=== PATIENT | female | born 2000 | race American Indian/Alaskan Native ===

== ENCOUNTER 2022-05-24 13:51 | Inpatient (IN) | payer OTHER, MEDICAID ==
--- NOTE | 2022-05-24 14:19 | Emergency Department Report ---
Blank Doc - Documentation Documentation: 22-year-old female presents with pelvic pain and vaginal bleeding. Patient st ated she is about 5 to 6 weeks. 1- This is a initial triage assessment/medical screening only. Full assessment and work-up will be completed once the patient is in [facility] gown, ED b ed and in a private room setting. This initial assessment/diagnostic orders/clinical plan/ treatment(s) is/are subject to change based on pt's health status, clinical progression and re-assessment by fellow clinical providers in the ED. Further treatment and workup at subsequent clinical providers discretion. Patient/guardians urged not to elope from ED as their condition may be serious if not clinically assessed and managed. 2-labs 3-UA 4-US OB The patient was evaluated in the emergency department for symptoms described in the history of present illness. He/she was evaluated in the context of the global COVID-19 pandemic, which necessitated consideration that the patient might be at risk for infection with the virus that causes COVID-19. Institutional protocols and algorithms that pertain to the evaluation of patients at risk for COVID-19 are in a state of rapid change based on information released by regulatory bodies including the CDC and federal and state organizations. These policies and algorithms were followed during the patient's care in the emergency department. Please note that these policies, procedures and recommendations changed on a rapid basis.
--- NOTE | 2022-05-24 16:41 | Ultrasound Report ---
US OB <= 14 weeks fetus INDICATION / CLINICAL INFORMATION: vaginal bleeding with pelvic pain. TECHNIQUE: Transabdominal. COMPARISON: None available. FINDINGS: UTERUS: Appears within normal limits. GESTATIONAL SAC: Well-defined oval shape and intrauterine in location. YOLK SAC: No significant abnormality. EMBRYO/FETUS: - [place] Length = 2.7 cm - Heart Rate, beats per minute (if present) = 133 beats per minute ADNEXA: No significant abnormality. FREE FLUID: None. ADDITIONAL FINDINGS: None. IMPRESSION: 1. Single, living intrauterine with estimated sonographic age of 9 weeks 4 days. Signer Name: Francesco Longoria MD Signed: 05/24/2022 4:36 PM Workstation Name: [facility]
[2022-05-24] MEDS ORDERED: SODIUM CHLORIDE 0.9% 1000 ML 1,000 ML IV ONE ×3 (18:25→21:25)
[2022-05-24 19:15] LABS: Albumin 4.1 g/dL (3.9-5); Calcium 9.3 mg/dL (8.4-10.2)
[2022-05-24] MEDS ORDERED: INSULIN REGULAR, HUMAN 100 UNITS/1 ML IV ONE ×2 (19:42→23:15)
[2022-05-24 20:10] LABS: Hematocrit 47.1 % (30.3-42.9); Hemoglobin 14.1 gm/dl (10.1-14.3); Mean Corpuscular HGB Conc 30 % (30-34); Mean Corpuscular Volume 100 fl (79-97); Platelet Count 490 K/mm3 (140-440); Red Blood Count 4.71 M/mm3 (3.65-5.03); Red Cell Distribution Width 14.6 % (13.2-15.2)
[2022-05-24] MEDS ORDERED: DEXTROSE 50% IN WATER (25GM) 50 ML SYRINGE IV PRN (21:25)
[2022-05-24] MEDS ORDERED: ONDANSETRON 4 MG/2 ML INJ IV ONE (21:25)
--- NOTE | 2022-05-24 21:30 | Emergency Department Report ---
ED General Adult HPI - General Chief complaint: Vaginal Bleeding Stated complaint: POSSIBLE MISCARRIAGE Time Seen by Provider: 05/24/22 14:15 Source: patient, family Mode of arrival: Ambulatory Limitations: No Limitations - History of Present Illness Initial comments: The patient was evaluated in the emergency department for symptoms described in the history of present illness. He/she was evaluated in the context of the global COVID-19 pandemic, which necessitated consideration that the patient might be at risk for infection with the virus that causes COVID-19. Institutional protocols and algorithms that pertain to the evaluation of patients at risk for COVID-19 are in a state of rapid change based on information released by regulatory bodies including the CDC and federal and state organizations. These policies and algorithms were followed during the patient's care in the emergency department. Please note that these policies, procedures and recommendations changed on a rapid basis. During the history and physical examination, I am chaperoned by nurse Ghada This is a 23-year-old female, with a history of type 1 diabetes. She is 3, para 1, and reports that she is approximately 9-1/2 weeks , reports that she does not currently have an outpatient CONTROLLER INSTRUCTOR. She also has a history of hyperemesis gravidarum. She presents to the department today with a complaint of 1 month of nausea and vomiting, malaise, fatigue, feeling thirsty, and 2 days of lower abdominal cramping with vaginal bleeding. -: Gradual, days(s) Location: abdomen Severity scale (0 -10): 6 Quality: aching Consistency: intermittent Improves with: rest Worsens with: movement - Related Data Allergies Allergy/AdvReac Type Severity Reaction Status Date / Time No Known Allergies Allergy Unverified 05/24/22 14:18 ED Review of Systems ROS: Stated complaint: POSSIBLE MISCARRIAGE Other details as noted in HPI Constitutional: malaise, weakness. denies: fever Eyes: denies: eye discharge ENT: denies: epistaxis Respiratory: denies: cough Cardiovascular: denies: chest pain Gastrointestinal: abdominal pain, nausea, vomiting Genitourinary: as per HPI. denies: dysuria Neurological: weakness Psychiatric: anxiety ED Past Medical Hx - Social History Smoking Status: Never Smoker Substance Use Type: None ED Physical Exam - General Limitations: No Limitations General appearance: alert, anxious, in distress - Head Head exam: Present: atraumatic, normocephalic - Eye Eye exam: Present: normal appearance, EOMI. Absent: nystagmus - ENT ENT exam: Present: normal exam, mucous membranes dry, normal external ear exam - Neck Neck exam: Present: normal inspection, full ROM. Absent: tenderness, meningismus - Respiratory Respiratory exam: Present: normal lung sounds bilaterally. Absent: respiratory distress, wheezes, rales, rhonchi, stridor, decreased breath sounds - Cardiovascular Cardiovascular Exam: Present: normal rhythm, tachycardia, normal heart sounds. Absent: bradycardia, irregular rhythm, systolic murmur, diastolic murmur, rubs, gallop - GI/Abdominal GI/Abdominal exam: Present: soft. Absent: distended, tenderness, guarding, rebound, rigid, pulsatile mass - Extremities Exam Extremities exam: Present: normal inspection, full ROM, normal capillary refill, other (2+ pulses noted in the bilateral upper and lower extremities. There is no palpable cord. negative Homans sign. Muscular compartments are soft. The pelvis is stable.). Absent: pedal edema, calf tenderness - Back Exam Back exam: Present: normal inspection. Absent: tenderness, CVA tenderness (R), CVA tenderness (L), paraspinal tenderness, vertebral tenderness - Neurological Exam Neurological exam: Present: alert, oriented X3, normal gait, other (No facial droop. Tongue midline. Extraocular movements intact bilaterally. Facial sensation intact to light touch in V1, V2, V3 distribution bilaterally. 5 and a 5 strength in 4 extremities. Sensation intact to light touch in 4 extremities.). Absent: motor sensory deficit - Psychiatric Psychiatric exam: Present: anxious - Skin Skin exam: Present: warm, dry, intact, normal color. Absent: rash ED Course Vital Signs 05/24/22 05/24/22 05/24/22 14:15 22:31 22:33 Temperature 98.9 F Pulse Rate 123 H 115 H Respiratory 18 34 H Rate Blood Pressure Blood Pressure 130/61 [Right] O2 Sat by Pulse 100 Oximetry O2 Sat by Pulse 99 Oximetry [ Digit-Finger] 05/24/22 05/24/22 22:45 23:01 Temperature Pulse Rate 114 H 124 H Respiratory 36 H 40 H Rate Blood Pressure 120/64 122/71 Blood Pressure [Right] O2 Sat by Pulse 99 99 Oximetry O2 Sat by Pulse Oximetry [ Digit-Finger] - Consultations Consultation #1: 05/24/22 22:30 Case presented to critical care physician, Dr. Coombs, Who agrees with the plan of care, and will follow in consultation Consultation #2: 05/24/22 22:31 Case presented to CONTROLLER INSTRUCTOR, Dr Lord, who agrees with the plan of care, and will follow in consultation - EJ/Peripheral Line Neck R Time Out Performed: Yes Indications: multiple IV sites needed Skin Cleansed in Sterile Fashion: Yes Size: 20 Dressing Placed: Tegaderm Patient Tolerated Procedure: well - Pulse Oximetry Interpretation Digit-Finger Initial Pulse Oximetry Readin O2 Sat by Pulse Oximetry: 99 Actions Taken: none ED Medical Decision Making - Lab Data Result diagrams: 05/24/22 18:40 05/24/22 18:40 Vital Signs 05/24/22 14:15 Temperature 98.9 F Pulse Rate 123 H Respiratory 18 Rate Blood Pressure 130/61 [Right] Lab Results 05/24/22 05/24/22 05/24/22 Range/Units 18:40 18:40 18:40 WBC 23.1 H (4.5-11.0) K/mm3 RBC 4.71 (3.65-5.03) M/mm3 Hgb 14.1 (10.1-14.3) gm/dl Hct 47.1 H (30.3-42.9) % MCV 100 H (79-97) fl MCH 30 (28-32) pg MCHC 30 (30-34) % RDW 14.6 (13.2-15.2) % Plt Count 490 H (140-440) K/mm3 Sodium 117 L* (137-145) mmol/L Potassium 6.6 H* (3.6-5.0) mmol/L Chloride 71.5 L (98-107) mmol/L Carbon Dioxide 6 L* (22-30) mmol/L Anion Gap 46 mmol/L BUN 34 H (7-17) mg/dL Creatinine 1.4 H (0.6-1.2) mg/dL Estimated GFR 57 ml/min BUN/Creatinine Ratio 24 % Glucose 1080 H* (65-100) mg/dL Calcium 9.3 (8.4-10.2) mg/dL Total Bilirubin 0.60 (0.1-1.2) mg/dL AST 20 (5-40) units/L ALT 20 (7-56) units/L Alkaline Phosphatase 111 (35-129) units/L Total Protein 8.3 H (6.3-8.2) g/dL Albumin 4.1 (3.9-5) g/dL Albumin/Globulin Ratio 1.0 % Blood Type A NEGATIVE - Radiology Data Radiology results: pending, report reviewed, image reviewed US OB <= 14 weeks fetus INDICATION / CLINICAL INFORMATION: vaginal bleeding with pelvic pain. TECHNIQUE: Transabdominal. COMPARISON: None available. FINDINGS: UTERUS: Appears within normal limits. GESTATIONAL SAC: Well-defined oval shape and intrauterine in location. YOLK SAC: No significant abnormality. EMBRYO/FETUS: - [place] Length = 2.7 cm - Heart Rate, beats per minute (if present) = 133 beats per minute ADNEXA: No significant abnormality. FREE FLUID: None. ADDITIONAL FINDINGS: None. IMPRESSION: 1. Single, living intrauterine with estimated sonographic age of 9 weeks 4 days. Signer Name: Francesco Longoria MD Signed: 05/24/2022 3:36 PM Workstation Name: [employer] - Medical Decision Making Differential diagnosis, including but not limited to: Threatened miscarriage, dehydration, hyperosmolar state, diabetic ketoacidosis, hyperemesis gravidarum Assessment and plan: 22-year-old female with a complaint of a few days of vaginal bleeding, without lower abdominal tenderness, rebound or guarding, found to have intrauterine , Rh-, diagnosis consistent with threatened miscarriage, complicated by diabetic ketoacidosis, manifested by hyperglycemia, metabolic acidosis, pseudohyponatremia, elevated potassium likely secondary to transcellular shift. We recommend admission to the medical service/ICU for diabetic ketoacidosis. The patient is agreeable to this plan of care. She provided consent for the details of her medical care and diagnostics to be discussed with her mother who is at the bedside, who is a respiratory therapist. She is Rh-, we will therefore order RhoGAM. We will order fluids, insulin drip, and insulin push. The hospital physician, Dr. Stephen, Will admit the patient to the medical ICU. Critical care physician, Dr. Coombs, Will follow in consultation. CONTROLLER INSTRUCTOR, Dr. Lord, Will follow in consultation. Critical Care Time: Yes Critical care time in (mins) excluding proc time.: 45 Critical care attestation.: If time is entered above; I have spent that time in minutes in the direct care of this critically ill patient, excluding procedure time. ED Disposition Clinical Impression: DKA (diabetic ketoacidosis), Threatened miscarriage, Nausea & vomiting, Dehydration Disposition: 09 ADMITTED INPATIENT Is pt being admited?: Yes Does the pt Need Aspirin: No Condition: Critical
[2022-05-24 21:48] LABS: Basophils % (Manual) 0 % (0.0-1.8); Eosinophils % (Manual) 0 % (0.0-4.3); Total Cells Counted 100
[2022-05-24 21:51] LABS: Platelet Estimate Consistent w Auto
[2022-05-24] MEDS ORDERED: MORPHINE 2 MG/1 ML INJ IV PRN (21:59)
[2022-05-24] MEDS ORDERED: MORPHINE 4 MG/1 ML INJ IV PRN (21:59)
[2022-05-24] MEDS ORDERED: ACETAMINOPHEN 325 MG TAB PO PRN (21:59)
[2022-05-24] MEDS ORDERED: SODIUM CHLORIDE 0.9% 1000 ML 1,000 ML IV SCH (22:00)
--- NOTE | 2022-05-24 22:13 | History and Physical Report ---
History of Present Illness Date of examination: 05/24/22 Date of admission: 05/24/2022 Chief complaint: Nausea and vomiting Vaginal bleeding Abdominal pain History of present illness: 22-year-old female with known history of type 1 diabetes mellitus presenting in the emergency room today complaining of nausea and vomiting and associated abdominal pain. Patient is also 9 weeks and had noticed some vaginal spotting spotting earlier today. She has also had some dysuria but denies any hematuria. She denies any fever but has had some chills. Patient denies any sick contacts and no recent travel. Denies any chest pain or shortness of breath, she has had some mild cough which is nonproductive. Denies any headache or dizziness and no diaphoresis. Patient also indicates that she has had hyperemesis during her previous . She has also been having persistent nausea and vomiting during this current . She has been compliant with her medications. Work-up in the emergency room today reveals that patient is in DKA. ultrasound reveals that there is single living intrauterine with estimated sonographic age of 9 weeks and 4 days. Patient has been started on IV fluid and also insulin drip. Urinalysis and ABG still being awaited. Past History Past Medical History: diabetes, other (History of hyperemesis) Past Surgical History: No surgical history Social history: no significant social history Family history: no significant family history Medications and Allergies Allergies Allergy/AdvReac Type Severity Reaction Status Date / Time No Known Allergies Allergy Unverified 05/24/22 14:18 Active Meds: Active Medications Acetaminophen (Acetaminophen 325 Mg Tab) 650 mg PO Q6H PRN PRN Reason: Pain MILD(1-3)/Fever >100.5/DODD Dextrose (Dextrose 50% In Water (25gm) 50 Ml Syringe) 0 ml IV Q30MIN PRN; Protocol PRN Reason: Hypoglycemia Insulin Human Regular 100 (units/ Sodium Chloride) 100 mls @ 1 mls/hr IV TITR TIANA; Protocol Sodium Chloride (Nacl 0.9% 1000 Ml) 1,000 mls @ 999 mls/hr IV BOLUS ONE Stop: 05/24/22 22:25 Potassium Chloride/Dextrose/Sod Cl (D5w/0.45% Nacl/Kcl 20 Meq) 20 meq in 1,000 mls @ 125 mls/hr IV DIRECT TIANA Sodium Chloride (Nacl 0.9% 1000 Ml) 1,000 mls @ 150 mls/hr IV DIRECT TIANA Morphine Sulfate (Morphine 2 Mg/1 Ml Inj) 2 mg IV Q4H PRN PRN Reason: Pain, Moderate (4-6) Morphine Sulfate (Morphine 4 Mg/1 Ml Inj) 4 mg IV Q4H PRN PRN Reason: Pain , Severe (7-10) Ondansetron HCl (Ondansetron 4 Mg/2 Ml Inj) 4 mg IV Q8H PRN PRN Reason: Nausea And Vomiting Sodium Chloride (Sodium Chloride 0.9% 10 Ml Flush Syringe) 10 ml IV PRN NR Stop: 05/25/22 21:59 Sodium Chloride (Sodium Chloride 0.9% 10 Ml Flush Syringe) 10 ml IV BID TIANA Sodium Chloride (Sodium Chloride 0.9% 10 Ml Flush Syringe) 10 ml IV PRN PRN PRN Reason: LINE FLUSH Review of Systems Constitutional: chills, no fever Ears, nose, mouth and throat: no nasal congestion, no sore throat Cardiovascular: no chest pain, no palpitations Respiratory: no cough, no shortness of breath Gastrointestinal: abdominal pain, nausea, vomiting, no diarrhea, no constipation, no BRBPR, no melena Genitourinary Female: dysuria, abnormal vaginal bleeding, , no pelvic pain, no flank pain, no hematuria Musculoskeletal: no neck pain, no low back pain Integumentary: no rash, no pruritis Neurological: no headaches, no confusion Psychiatric: no anxiety, no depression Endocrine: no polyphagia, no excessive thirst, no polydipsia, no polyuria, no nocturia Exam - Constitutional Vitals: Temp Pulse Resp BP Pulse Ox 98.9 F 123 H 18 130/61 05/24/22 14:15 05/24/22 14:15 05/24/22 14:15 05/24/22 14:15 General appearance: Present: no acute distress, well-nourished - EENT Eyes: Present: PERRL, EOM intact. Absent: scleral icterus ENT: hearing intact, clear oral mucosa, dentition normal - Neck Neck: Present: supple, normal ROM - Respiratory Respiratory effort: normal Respiratory: bilateral: CTA - Cardiovascular Rhythm: regular Heart Sounds: Present: S1 & S2. Absent: gallop, systolic murmur, diastolic murmur, rub, click - Extremities Extremities: no ischemia, pulses intact, pulses symmetrical, No edema, normal temperature, normal color, Full ROM Peripheral Pulses: within normal limits - Abdominal General gastrointestinal: Present: soft, tender (Mild tenderness in the suprapubic region, no guarding and no rebound tenderness), non-distended, normal bowel sounds. Absent: mass - Integumentary Integumentary: Present: clear, warm, dry, normal turgor. Absent: rash - Musculoskeletal Musculoskeletal: strength equal bilaterally - Psychiatric Psychiatric: appropriate mood/affect, intact judgment & insight, memory intact, cooperative - Neurologic Neurologic: CNII-XII intact, no focal deficits, moves all extremities Results - Labs CBC & Chem 7: 05/24/22 18:40 05/24/22 18:40 Labs: Abnormal lab results 05/24/22 05/24/22 Range/Units 18:40 18:40 WBC 23.1 H (4.5-11.0) K/mm3 Hct 47.1 H (30.3-42.9) % MCV 100 H (79-97) fl Plt Count 490 H (140-440) K/mm3 Seg Neuts % (Manual) 98.0 H (40.0-70.0) % Lymphocytes % (Manual) 1.0 L (13.4-35.0) % Seg Neutrophils # Man 22.6 H (1.8-7.7) K/mm3 Lymphocytes # (Manual) 0.2 L (1.2-5.4) K/mm3 Sodium 117 L* (137-145) mmol/L Potassium 6.6 H* (3.6-5.0) mmol/L Chloride 71.5 L (98-107) mmol/L Carbon Dioxide 6 L* (22-30) mmol/L BUN 34 H (7-17) mg/dL Creatinine 1.4 H (0.6-1.2) mg/dL Glucose 1080 H* (65-100) mg/dL Total Protein 8.3 H (6.3-8.2) g/dL Assessment and Plan Assessment: 1. Diabetic ketoacidosis 2. Nausea and vomiting 3. Dehydration 4. Threatened Plan: 1. Admitted into the intensive care unit 2. Patient started on IV fluid and insulin drip. 3. We will monitor Accu-Cheks closely. 4. Consult placed to SENIOR DATABASE PROGRAMMER for evaluation and follow-up on threatened . 5. We will also place patient on anti-emetic. DVT prophylaxis: Sequential compression device CODE STATUS: Full code
[2022-05-24] MEDS: INSULIN REGULAR, HUMAN 100 UNITS in SODIUM CHLORIDE 0.9% 99 ML IV SCH (22:29)
[2022-05-24 22:32] LABS: Calcium 9.5 mg/dL (8.4-10.2)
[2022-05-24] MEDS ORDERED: LORazepam 2 MG/ML VIAL IV ONE (23:30)
[2022-05-24] MEDS ORDERED: SODIUM BICARB 8.4% 50 MEQ/50 ML SYRINGE IV ONE (23:32)
[2022-05-24 23:46] LABS: Mucus,Urine FEW /HPF
[2022-05-24 23:54] LABS: Bilirubin,Urine Negative (Negative); Blood,Urine 4+ (Negative); Color,Urine Straw (Yellow)
[2022-05-24 23:55] LABS: Urobilinogen,Urine < 2.0 mg/dL (<2.0)
[2022-05-25 01:22] LABS: Calcium 8.1 mg/dL (8.4-10.2)
[2022-05-25 05:10] LABS: BUN/Creatinine Ratio 30; Blood Urea Nitrogen 33 mg/dL (7-17); Calcium 8.5 mg/dL (8.4-10.2); Hemolysis Index 2
[2022-05-25] MEDS: D5W/0.45% NACL/KCL 20 MEQ 20 MEQ/1,000 ML BAG IV SCH ×3 (06:20→14:51)
[2022-05-25] MEDS: INSULIN REGULAR, HUMAN 100 UNITS in SODIUM CHLORIDE 0.9% 99 ML IV SCH (06:20)
[2022-05-25] MEDS: ONDANSETRON 4 MG/2 ML INJ IV PRN ×2 (08:52→22:22)
[2022-05-25] MEDS ORDERED: SODIUM CHLORIDE 0.9% 1000 ML 2,000 ML IV ONE (09:00)
[2022-05-25] MEDS ORDERED: FAMOTIDINE 20 MG/2 ML INJ IV SCH (10:00)
--- NOTE | 2022-05-25 10:24 | Consultation ---
History of Present Illness Consult date: 05/25/22 Requesting physician: WALE KENYON Reason for consult: other (DKA) History of present illness: PULMONARY/CCM CONSULT NOTE (Full dictation # [id number]) Please see dictated notes for full details Past History Past Medical History: diabetes, other (History of hyperemesis) Past Surgical History: No surgical history Social history: no significant social history Family history: no significant family history Medications and Allergies Allergies Allergy/AdvReac Type Severity Reaction Status Date / Time No Known Allergies Allergy Verified 05/25/22 03:24 Active Meds: Active Medications Acetaminophen (Acetaminophen 325 Mg Tab) 650 mg PO Q6H PRN PRN Reason: Pain MILD(1-3)/Fever >100.5/DODD Dextrose (Dextrose 50% In Water (25gm) 50 Ml Syringe) 0 ml IV Q30MIN PRN; Protocol PRN Reason: Hypoglycemia Last Admin: 05/24/22 23:41 Dose: 50 ml Famotidine (Famotidine 20 Mg/2 Ml Inj) 20 mg IV QDAY TIANA Stop: 05/25/22 20:00 Last Admin: 05/25/22 09:01 Dose: 20 mg Famotidine (Famotidine 20 Mg Tab) 20 mg PO QDAY TINAA Insulin Human Regular 100 (units/ Sodium Chloride) 100 mls @ 1 mls/hr IV TITR TIANA; Protocol Last Titration: 05/25/22 10:09 Dose: 2 units/hr, 2 mls/hr Potassium Chloride/Dextrose/Sod Cl (D5w/0.45% Nacl/Kcl 20 Meq) 20 meq in 1,000 mls @ 125 mls/hr IV DIRECT TIANA Last Admin: 05/25/22 06:20 Dose: 125 mls/hr Sodium Chloride (Nacl 0.9% 1000 Ml) 1,000 mls @ 150 mls/hr IV DIRECT TIANA Last Admin: 05/25/22 01:31 Dose: 150 mls/hr Sodium Chloride (Nacl 0.9% 1000 Ml) 2,000 mls @ 999 mls/hr IV BOLUS ONE Stop: 05/25/22 11:00 Last Admin: 05/25/22 08:46 Dose: 999 mls/hr Morphine Sulfate (Morphine 2 Mg/1 Ml Inj) 2 mg IV Q4H PRN PRN Reason: Pain, Moderate (4-6) Morphine Sulfate (Morphine 4 Mg/1 Ml Inj) 4 mg IV Q4H PRN PRN Reason: Pain , Severe (7-10) Ondansetron HCl (Ondansetron 4 Mg/2 Ml Inj) 4 mg IV Q8H PRN PRN Reason: Nausea And Vomiting Last Admin: 05/25/22 08:52 Dose: 4 mg Sodium Chloride (Sodium Chloride 0.9% 10 Ml Flush Syringe) 10 ml IV BID TIANA Last Admin: 05/25/22 09:01 Dose: 10 ml Sodium Chloride (Sodium Chloride 0.9% 10 Ml Flush Syringe) 10 ml IV PRN PRN PRN Reason: LINE FLUSH Physical Examination Vital signs: Vital Signs Temp Pulse Resp BP 98.9 F 123 H 18 130/61 05/24/22 14:15 05/24/22 14:15 05/24/22 14:15 05/24/22 14:15 Results - Laboratory Findings CBC and BMP: 05/25/22 11:10 05/25/22 04:28 Abnormal lab findings: Abnormal Labs 05/24/22 05/24/22 05/24/22 18:40 18:40 22:00 WBC 23.1 H Hct 47.1 H MCV 100 H Plt Count 490 H Seg Neuts % (Manual) 98.0 H Lymphocytes % (Manual) 1.0 L Seg Neutrophils # Man 22.6 H Lymphocytes # (Manual) 0.2 L VBG pH Sodium 117 L* 118 L* Potassium 6.6 H* 8.2 H* D Chloride 71.5 L 69.7 L Carbon Dioxide 6 L* 4 L* BUN 34 H 39 H Creatinine 1.4 H 1.5 H Glucose 1080 H* 1098 H* POC Glucose Calcium Phosphorus 12.60 H Magnesium 3.10 H Total Protein 8.3 H HCG, Quant 05/24/22 05/25/22 05/25/22 22:00 00:40 00:40 WBC Hct MCV Plt Count Seg Neuts % (Manual) Lymphocytes % (Manual) Seg Neutrophils # Man Lymphocytes # (Manual) VBG pH 7.097 L* Sodium 123 L Potassium 5.3 H D Chloride 81.8 L Carbon Dioxide 8 L* BUN 38 H Creatinine 1.4 H Glucose 871 H* POC Glucose Calcium 8.1 L Phosphorus Magnesium Total Protein HCG, Quant [id number] H 05/25/22 05/25/2222 00:57 02:12 03:03 WBC Hct MCV Plt Count Seg Neuts % (Manual) Lymphocytes % (Manual) Seg Neutrophils # Man Lymphocytes # (Manual) VBG pH Sodium Potassium Chloride Carbon Dioxide BUN Creatinine Glucose POC Glucose > 600 H > 600 H 494 H Calcium Phosphorus Magnesium Total Protein HCG, Quant 05/25/22 05/25/22 05/25/22 04:13 04:28 06:09 WBC Hct MCV Plt Count Seg Neuts % (Manual) Lymphocytes % (Manual) Seg Neutrophils # Man Lymphocytes # (Manual) VBG pH Sodium 130 L D Potassium Chloride 95.0 L Carbon Dioxide 16 L D BUN 33 H Creatinine Glucose 347 H POC Glucose 384 H 182 H Calcium Phosphorus Magnesium Total Protein HCG, Quant 05/25/22 05/25/22 05/25/22 07:08 08:07 08:57 WBC Hct MCV Plt Count Seg Neuts % (Manual) Lymphocytes % (Manual) Seg Neutrophils # Man Lymphocytes # (Manual) VBG pH Sodium Potassium Chloride Carbon Dioxide BUN Creatinine Glucose POC Glucose 138 H 125 H 114 H Calcium Phosphorus Magnesium Total Protein HCG, Quant 05/25/22 10:08 WBC Hct MCV Plt Count Seg Neuts % (Manual) Lymphocytes % (Manual) Seg Neutrophils # Man Lymphocytes # (Manual) VBG pH Sodium Potassium Chloride Carbon Dioxide BUN Creatinine Glucose POC Glucose 111 H Calcium Phosphorus Magnesium Total Protein HCG, Quant
--- NOTE | 2022-05-25 10:30 | Progress Note ---
<JUS CAAL - Last Filed: 05/25/22 18:22> Assessment and Plan Assessment and plan: This is a 22-year-old female who is currently 9 weeks with known past medical history of type 1 diabetes mellitus admitted for DKA and vaginal spotting Hospital Course to Date: 05/25: Remains on DKA protocol. Still complaining of nausea but no vomiting. Anion gap still in the 20s this am, additional IVF bolus administered. Continue PRN antiemetic for N/V. No more vaginal spotting reported and patient denied any dysuria at this time. Worsening leukocytosis with low grade fever this am. Proably reactive from DKA, will culture and order procal for now. Hold off on IV abx for now. OBGYN consult pending, follow up call made to confirm consult. Credit Collections Manager lMD to see patient this afternoon. CCM is also following. Assessment and Plan #Diabetic Ketoacidosis(DKA) #Type 1 Diabetes Mellitus #Anion Gap Metabolic Acidosis - Presented with N/V and abdominal pain, with elevated BG, severe acidosis, and +ketone in urine - Patient is currently 9 week and reported persistent hyperemesis. She has been compliant with her medications. - DKA protocol was initiated - Continue insulin gtt and IVF resuscitation until gap closed, then transition to subQ - Monitor and replace electrolytes as needed - Monitor anion gap, serial Labs ordered - [facility] is also following #Nausea and Vomiting #Abdominal Pain - Most likely secondary to DKA - on DKA protocol - Patient still complaining of nausea this am, but denied any abdominal nor any vomiting - PRN antiemetic for N/V #Acute Kidney Injury(CALI) most likely Vasomotor Nephropathy #Hypernatremia #Hyperkalemia #Volume Depletion - 2/2 to dehydration - Renal function and electrolytes improved post IVF hydration - Continue IVf resuscitation per DKA protocol - Strict intake and output - Avoid nephrotoxic medications - Monitor and replace electrolytes as needed - Serial Labs ordered #Vaginal Spotting #C/f Threatened /Miscarriage - Patient is currently 9 week also c/o of vaginal spotting started on day of admit - ultrasound reveals that there is single living intrauterine with estimated sonographic age of 9 weeks and 4 days. - No more vaginal spotting reported and patient denied any dysuria at this time. - ENERGY RATER consulted for further eval. Follow up call made to confirm consult. Credit Collections Manager lMD to see patient this afternoon. #Systemic Inflammatory Response Syndrome (SIRS) - With tachycardia, worsening leukocytosis, and low grade fever - Probably reactive from DKA - UA noted, + blood and ketones. Otherwise unremarkable - Orders placed for blood cultures and procal - Will hold off on IVF Abx for now - Continue IVF resuscitation - F/U on cultures - Trend CBC #GI/DVT Prophylaxis - PPI- Pepcid - SCDs to bilateral lower extremities while in bed #Advance Care Planning - Disease education data, care plan, diagnoses, and prognosis were discussed with patient at the bedside. Patient is a FULL code. Patient acknowledged understanding and agreed with current care plan. The high probability of a clinically significant, sudden or life threatening deterioration of the [multiple] system(s) required my full and direct attention, intervention and personal management. The aggregate critical care time was [60] minutes. This time is in addition to time spent performing reported procedures but includes the following: [x] Data Review and interpretation [x] Patient assessment and monitoring of vital signs [x] Documentation [x] Medication orders and management Disposition Plan: ICU Total Time Spent with Patient (Minutes): 60 History Interval history: Patient seen and examined at the bedside. Fully AAO, on RA. Complaining on nausea but no vomitting. On insulin gtt and continuous IVF per DKA protocol. Patient with low grade fever this am, ST on the monitor, HR in the 130-140s. BP stable Hospitalist Physical - Constitutional Vitals: Temp Pulse Resp BP Pulse Ox 100.0 F H 123 H 21 138/86 100 05/25/22 07:15 05/25/22 10:03 05/25/22 10:03 05/25/22 10:03 05/25/22 10:03 General appearance: Present: no acute distress, well-nourished - EENT Eyes: Present: PERRL, EOM intact ENT: hearing intact - Neck Neck: Present: normal ROM - Respiratory Respiratory effort: normal Respiratory: bilateral: CTA - Cardiovascular Rhythm: regular Heart Sounds: Present: S1 & S2 - Extremities Extremities: no ischemia, pulses intact, pulses symmetrical Peripheral Pulses: within normal limits - Abdominal General gastrointestinal: soft, non-distended, normal bowel sounds - Integumentary Integumentary: Present: clear, warm, dry - Psychiatric Psychiatric: appropriate mood/affect, cooperative - Neurologic Neurologic: CNII-XII intact, moves all extremities - Allied Health Allied health notes reviewed: nursing, case management Results - Labs CBC & Chem 7: 05/25/22 11:10 05/25/22 11:10 Labs: Laboratory Last Values WBC 23.1 K/mm3 (4.5-11.0) H 05/24/22 18:40 RBC 4.71 M/mm3 (3.65-5.03) 05/24/22 18:40 Hgb 14.1 gm/dl (10.1-14.3) 05/24/22 18:40 Hct 47.1 % (30.3-42.9) H 05/24/22 18:40 MCV 100 fl (79-97) H 05/24/22 18:40 MCH 30 pg (28-32) 05/24/22 18:40 MCHC 30 % (30-34) 05/24/22 18:40 RDW 14.6 % (13.2-15.2) 05/24/22 18:40 Plt Count 490 K/mm3 (140-440) H 05/24/22 18:40 Add Manual Diff Complete 05/24/22 18:40 Total Counted 100 05/24/22 18:40 Seg Neuts % (Manual) 98.0 % (40.0-70.0) H 05/24/22 18:40 Band Neutrophils % 0 % 05/24/22 18:40 Lymphocytes % (Manual) 1.0 % (13.4-35.0) L 05/24/22 18:40 Reactive Lymphs % (Man) 0 % 05/24/22 18:40 Monocytes % (Manual) 1.0 % (0.0-7.3) 05/24/22 18:40 Eosinophils % (Manual) 0 % (0.0-4.3) 05/24/22 18:40 Basophils % (Manual) 0 % (0.0-1.8) 05/24/22 18:40 Metamyelocytes % 0 % 05/24/22 18:40 Myelocytes % 0 % 05/24/22 18:40 Promyelocytes % 0 % 05/24/22 18:40 Blast Cells % 0 % 05/24/22 18:40 Nucleated RBC % Not Reportable 05/24/22 18:40 Seg Neutrophils # Man 22.6 K/mm3 (1.8-7.7) H 05/24/22 18:40 Band Neutrophils # 0.0 K/mm3 05/24/22 18:40 Lymphocytes # (Manual) 0.2 K/mm3 (1.2-5.4) L 05/24/22 18:40 Abs React Lymphs (Man) 0.0 K/mm3 05/24/22 18:40 Monocytes # (Manual) 0.2 K/mm3 (0.0-0.8) 05/24/22 18:40 Eosinophils # (Manual) 0.0 K/mm3 (0.0-0.4) 05/24/22 18:40 Basophils # (Manual) 0.0 K/mm3 (0.0-0.1) 05/24/22 18:40 Metamyelocytes # 0.0 K/mm3 05/24/22 18:40 Myelocytes # 0.0 K/mm3 05/24/22 18:40 Promyelocytes # 0.0 K/mm3 05/24/22 18:40 Blast Cells # 0.0 K/mm3 05/24/22 18:40 WBC Morphology Not Reportable 05/24/22 18:40 Hypersegmented Neuts Not Reportable 05/24/22 18:40 Hyposegmented Neuts Not Reportable 05/24/22 18:40 Hypogranular Neuts Not Reportable 05/24/22 18:40 Smudge Cells Not Reportable 05/24/22 18:40 Toxic Granulation Not Reportable 05/24/22 18:40 Toxic Vacuolation Not Reportable 05/24/22 18:40 Dohle Bodies Not Reportable 05/24/22 18:40 Pelger-Huet Anomaly Not Reportable 05/24/22 18:40 Polo Rods Not Reportable 05/24/22 18:40 Platelet Estimate Consistent w auto 05/24/22 18:40 Clumped Platelets Not Reportable 05/24/22 18:40 Plt Clumps, EDTA Not Reportable 05/24/22 18:40 Large Platelets Not Reportable 05/24/22 18:40 Giant Platelets Not Reportable 05/24/22 18:40 Platelet Satelliting Not Reportable 05/24/22 18:40 Plt Morphology Comment Not Reportable 05/24/22 18:40 RBC Morphology Not Reportable 05/24/22 18:40 Dimorphic RBCs Not Reportable 05/24/22 18:40 Polychromasia Not Reportable 05/24/22 18:40 Hypochromasia Not Reportable 05/24/22 18:40 Poikilocytosis Not Reportable 05/24/22 18:40 Anisocytosis Not Reportable 05/24/22 18:40 Microcytosis Not Reportable 05/24/22 18:40 Macrocytosis Not Reportable 05/24/22 18:40 Spherocytes Not Reportable 05/24/22 18:40 Pappenheimer Bodies Not Reportable 05/24/22 18:40 Sickle Cells Not Reportable 05/24/22 18:40 Target Cells Not Reportable 05/24/22 18:40 Tear Drop Cells Not Reportable 05/24/22 18:40 Ovalocytes Not Reportable 05/24/22 18:40 Helmet Cells Not Reportable 05/24/22 18:40 [place] Bodies Not Reportable 05/24/22 18:40 [place] Rings Not Reportable 05/24/22 18:40 [place] Cells Not Reportable 05/24/22 18:40 Bite Cells Not Reportable 05/24/22 18:40 Crenated Cell Not Reportable 05/24/22 18:40 Elliptocytes Not Reportable 05/24/22 18:40 Acanthocytes (Spur) Not Reportable 05/24/22 18:40 Rouleaux Not Reportable 05/24/22 18:40 Hemoglobin C Crystals Not Reportable 05/24/22 18:40 Schistocytes Not Reportable 05/24/22 18:40 Malaria parasites Not Reportable 05/24/22 18:40 Prashant Bodies Not Reportable 05/24/22 18:40 Hem Pathologist Commnt No 05/24/22 18:40 VBG pH 7.097 (7.320-7.420) L* 05/25/22 00:40 Sodium 130 mmol/L (137-145) L D 05/25/22 04:28 Potassium 3.8 mmol/L (3.6-5.0) D 05/25/22 04:28 Chloride 95.0 mmol/L (98-107) L 05/25/22 04:28 Carbon Dioxide 16 mmol/L (22-30) L D 05/25/22 04:28 Anion Gap 23 mmol/L 05/25/22 04:28 BUN 33 mg/dL (7-17) H 05/25/22 04:28 Creatinine 1.1 mg/dL (0.6-1.2) 05/25/22 04:28 Estimated GFR > 60 ml/min 05/25/22 04:28 BUN/Creatinine Ratio 30 % 05/25/22 04:28 Glucose 347 mg/dL (65-100) H 05/25/22 04:28 POC Glucose 111 mg/dL (70-105) H 05/25/22 10:08 Calcium 8.5 mg/dL (8.4-10.2) 05/25/22 04:28 Phosphorus 12.60 mg/dL (2.5-4.5) H 05/24/22 22:00 Magnesium 3.10 mg/dL (1.7-2.3) H 05/24/22 22:00 Total Bilirubin 0.60 mg/dL (0.1-1.2) 05/24/22 18:40 AST 20 units/L (5-40) 05/24/22 18:40 ALT 20 units/L (7-56) 05/24/22 18:40 Alkaline Phosphatase 111 units/L (35-129) 05/24/22 18:40 Total Protein 8.3 g/dL (6.3-8.2) H 05/24/22 18:40 Albumin 4.1 g/dL (3.9-5) 05/24/22 18:40 Albumin/Globulin Ratio 1.0 % 05/24/22 18:40 HCG, Quant [id number] mIU/mL (0-4) H 05/24/22 22:00 Urine Color Straw (Yellow) 05/24/22 23:34 Urine Turbidity Hazy (Clear) 05/24/22 23:34 Urine pH 5.0 (5.0-7.0) 05/24/22 23:34 Ur Specific Alpha 1.010 (1.003-1.030) 05/24/22 23:34 Urine Protein 100 mg/dl mg/dL (Negative) 05/24/22 23:34 Urine Glucose (UA) 2000 mg/dL (Negative) 05/24/22 23:34 Urine Ketones 80 mg/dL (Negative) 07/21/22 23:34 Urine Blood 4+ (Negative) 05/24/22 23:34 Urine Nitrite Negative (Negative) 05/24/22 23:34 Ur Reducing Substances Not Reportable 05/24/22 23:34 Urine Bilirubin Negative (Negative) 05/24/22 23:34 Urine Ictotest Not Reportable 05/24/22 23:34 Urine Urobilinogen < 2.0 mg/dL (<2.0) 05/24/22 23:34 Ur Leukocyte Esterase Negative (Negative) 05/24/22 23:34 Urine WBC (Auto) 2.0 /HPF (0.0-6.0) 05/24/22 23:34 Urine RBC (Auto) 10.0 /HPF (0.0-6.0) 05/24/22 23:34 U Epithel Cells (Auto) 1.0 /HPF (0-13.0) 05/24/22 23:34 Urine Mucus Few /HPF 05/24/22 23:34 Blood Type A NEGATIVE 05/24/22 18:40 Antibody Screen Negative 05/24/22 18:40 Sorto/IV: Voiding Method External Female Catheter Active Medications - Current Medications Current Medications: Generic Name Dose Route Start Last Admin Trade Name Freq PRN Reason Stop Dose Admin Acetaminophen 650 mg 05/24/22 21:59 Acetaminophen 325 Mg Tab PO Q6H PRN Pain MILD(1-3)/Fever >100.5/DODD Dextrose 0 ml 05/24/22 21:25 05/24/22 23:41 Dextrose 50% In Water (25gm) 50 Ml Syringe IV 50 ml Q30MIN PRN Administration Hypoglycemia Protocol Famotidine 20 mg 05/25/22 10:00 05/25/22 09:01 Famotidine 20 Mg/2 Ml Inj IV 05/25/22 20:00 20 mg QDAY TIANA Administration Famotidine 20 mg 05/26/22 10:00 Famotidine 20 Mg Tab PO QDAY TIANA Insulin Human Regular 100 100 mls @ 1 mls/hr 05/24/22 22:00 05/25/22 10:09 units/ Sodium Chloride IV 2 units/hr TITR TIANA 2 mls/hr Titration Protocol 1 UNITS/HR Potassium Chloride/Dextrose/Sod Cl 20 meq in 1,000 mls @ 125 mls/hr 05/24/22 22:00 05/25/22 06:20 D5w/0.45% Nacl/Kcl 20 Meq IV 125 mls/hr DIRECT TIANA Administration Sodium Chloride 1,000 mls @ 150 mls/hr 05/24/22 22:00 05/25/22 01:31 Nacl 0.9% 1000 Ml IV 150 mls/hr DIRECT TIANA Administration Sodium Chloride 2,000 mls @ 999 mls/hr 05/25/22 09:00 05/25/22 08:46 Nacl 0.9% 1000 Ml IV 05/25/22 11:00 999 mls/hr BOLUS ONE Administration Morphine Sulfate 2 mg 05/24/22 21:59 Morphine 2 Mg/1 Ml Inj IV Q4H PRN Pain, Moderate (4-6) Morphine Sulfate 4 mg 05/24/22 21:59 Morphine 4 Mg/1 Ml Inj IV Q4H PRN Pain , Severe (7-10) Ondansetron HCl 4 mg 05/24/22 21:59 05/25/22 08:52 Ondansetron 4 Mg/2 Ml Inj IV 4 mg Q8H PRN Administration Nausea And Vomiting Sodium Chloride 10 ml 05/24/22 22:00 05/25/22 09:01 Sodium Chloride 0.9% 10 Ml Flush Syringe IV 10 ml BID TIANA Administration Sodium Chloride 10 ml 05/24/22 21:59 Sodium Chloride 0.9% 10 Ml Flush Syringe IV PRN PRN LINE FLUSH <SOCRATES LOPEZ - Last Filed: 05/26/22 07:28> Assessment and Plan Assessment and plan: I saw and evaluated the patient. I agree with the findings and the plan of care as documented in the Nurse Practitioner's~note, with the following corrections and additions. Hospitalist Physical - Constitutional Vitals: Temp Pulse Resp BP Pulse Ox 99 F 99 H 27 H 121/71 100 05/26/22 04:00 05/26/22 07:00 05/26/22 07:00 05/26/22 07:00 05/26/22 06:01 Results - Labs CBC & Chem 7: 05/26/22 05:13 05/26/22 05:13 Labs: Laboratory Last Values WBC 21.6 K/mm3 (4.5-11.0) H 05/26/22 05:13 RBC 3.46 M/mm3 (3.65-5.03) L 05/26/22 05:13 Hgb 10.4 gm/dl (10.1-14.3) 05/26/22 05:13 Hct 30.4 % (30.3-42.9) 05/26/22 05:13 MCV 88 fl (79-97) 05/26/22 05:13 MCH 30 pg (28-32) 05/26/22 05:13 MCHC 34 % (30-34) 05/26/22 05:13 RDW 14.9 % (13.2-15.2) 05/26/22 05:13 Plt Count 287 K/mm3 (140-440) 05/26/22 05:13 Add Manual Diff Complete 05/24/22 18:40 Total Counted 100 05/24/22 18:40 Seg Neuts % (Manual) 98.0 % (40.0-70.0) H 05/24/22 18:40 Band Neutrophils % 0 % 05/24/22 18:40 Lymphocytes % (Manual) 1.0 % (13.4-35.0) L 05/24/22 18:40 Reactive Lymphs % (Man) 0 % 05/24/22 18:40 Monocytes % (Manual) 1.0 % (0.0-7.3) 05/24/22 18:40 Eosinophils % (Manual) 0 % (0.0-4.3) 05/24/22 18:40 Basophils % (Manual) 0 % (0.0-1.8) 05/24/22 18:40 Metamyelocytes % 0 % 05/24/22 18:40 Myelocytes % 0 % 05/24/22 18:40 Promyelocytes % 0 % 05/24/22 18:40 Blast Cells % 0 % 05/24/22 18:40 Nucleated RBC % Not Reportable 05/24/22 18:40 Seg Neutrophils # Man 22.6 K/mm3 (1.8-7.7) H 05/24/22 18:40 Band Neutrophils # 0.0 K/mm3 05/24/22 18:40 Lymphocytes # (Manual) 0.2 K/mm3 (1.2-5.4) L 05/24/22 18:40 Abs React Lymphs (Man) 0.0 K/mm3 05/24/22 18:40 Monocytes # (Manual) 0.2 K/mm3 (0.0-0.8) 05/24/22 18:40 Eosinophils # (Manual) 0.0 K/mm3 (0.0-0.4) 05/24/22 18:40 Basophils # (Manual) 0.0 K/mm3 (0.0-0.1) 05/24/22 18:40 Metamyelocytes # 0.0 K/mm3 05/24/22 18:40 Myelocytes # 0.0 K/mm3 05/24/22 18:40 Promyelocytes # 0.0 K/mm3 05/24/22 18:40 Blast Cells # 0.0 K/mm3 05/24/22 18:40 WBC Morphology Not Reportable 05/24/22 18:40 Hypersegmented Neuts Not Reportable 05/24/22 18:40 Hyposegmented Neuts Not Reportable 05/24/22 18:40 Hypogranular Neuts Not Reportable 05/24/22 18:40 Smudge Cells Not Reportable 05/24/22 18:40 Toxic Granulation Not Reportable 05/24/22 18:40 Toxic Vacuolation Not Reportable 05/24/22 18:40 Dohle Bodies Not Reportable 05/24/22 18:40 Pelger-Huet Anomaly Not Reportable 05/24/22 18:40 Polo Rods Not Reportable 05/24/22 18:40 Platelet Estimate Consistent w auto 05/24/22 18:40 Clumped Platelets Not Reportable 05/24/22 18:40 Plt Clumps, EDTA Not Reportable 05/24/22 18:40 Large Platelets Not Reportable 05/24/22 18:40 Giant Platelets Not Reportable 05/24/22 18:40 Platelet Satelliting Not Reportable 05/24/22 18:40 Plt Morphology Comment Not Reportable 05/24/22 18:40 RBC Morphology Not Reportable 05/24/22 18:40 Dimorphic RBCs Not Reportable 05/24/22 18:40 Polychromasia Not Reportable 05/24/22 18:40 Hypochromasia Not Reportable 05/24/22 18:40 Poikilocytosis Not Reportable 05/24/22 18:40 Anisocytosis Not Reportable 05/24/22 18:40 Microcytosis Not Reportable 05/24/22 18:40 Macrocytosis Not Reportable 05/24/22 18:40 Spherocytes Not Reportable 05/24/22 18:40 Pappenheimer Bodies Not Reportable 05/24/22 18:40 Sickle Cells Not Reportable 05/24/22 18:40 Target Cells Not Reportable 05/24/22 18:40 Tear Drop Cells Not Reportable 05/24/22 18:40 Ovalocytes Not Reportable 05/24/22 18:40 Helmet Cells Not Reportable 05/24/22 18:40 [place] Bodies Not Reportable 05/24/22 18:40 [place] Rings Not Reportable 05/24/22 18:40 [place] Cells Not Reportable 05/24/22 18:40 Bite Cells Not Reportable 05/24/22 18:40 Crenated Cell Not Reportable 05/24/22 18:40 Elliptocytes Not Reportable 05/24/22 18:40 Acanthocytes (Spur) Not Reportable 05/24/22 18:40 Rouleaux Not Reportable 05/24/22 18:40 Hemoglobin C Crystals Not Reportable 05/24/22 18:40 Schistocytes Not Reportable 05/24/22 18:40 Malaria parasites Not Reportable 05/24/22 18:40 Prashant Bodies Not Reportable 05/24/22 18:40 Hem Pathologist Commnt No 05/24/22 18:40 VBG pH 7.097 (7.320-7.420) L* 05/25/22 00:40 Sodium 136 mmol/L (137-145) L 05/26/22 05:13 Potassium 3.3 mmol/L (3.6-5.0) L 05/26/22 05:13 Chloride 104.2 mmol/L (98-107) 05/26/22 05:13 Carbon Dioxide 20 mmol/L (22-30) L 05/26/22 05:13 Anion Gap 15 mmol/L 05/26/22 05:13 BUN 11 mg/dL (7-17) 05/26/22 05:13 Creatinine 0.5 mg/dL (0.6-1.2) L 05/26/22 05:13 Estimated GFR > 60 ml/min 05/26/22 05:13 BUN/Creatinine Ratio 22 % 05/26/22 05:13 Glucose 143 mg/dL (65-100) H 05/26/22 05:13 POC Glucose 188 mg/dL (70-105) H 05/26/22 02:02 Hemoglobin A1c 9.7 % (4-6) H 05/26/22 05:13 Calcium 8.0 mg/dL (8.4-10.2) L 05/26/22 05:13 Phosphorus 1.80 mg/dL (2.5-4.5) L D 05/26/22 05:13 Magnesium 1.90 mg/dL (1.7-2.3) 05/26/22 05:13 Total Bilirubin 0.60 mg/dL (0.1-1.2) 05/24/22 18:40 AST 20 units/L (5-40) 05/24/22 18:40 ALT 20 units/L (7-56) 05/24/22 18:40 Alkaline Phosphatase 111 units/L (35-129) 05/24/22 18:40 Total Protein 8.3 g/dL (6.3-8.2) H 05/24/22 18:40 Albumin 4.1 g/dL (3.9-5) 05/24/22 18:40 Albumin/Globulin Ratio 1.0 % 05/24/22 18:40 Procalcitonin 1.11 ng/mL (<0.15) 05/25/22 13:24 HCG, Quant 441013 mIU/mL (0-4) H 05/24/22 22:00 Urine Color Straw (Yellow) 05/24/22 23:34 Urine Turbidity Hazy (Clear) 05/24/22 23:34 Urine pH 5.0 (5.0-7.0) 05/24/22 23:34 Ur Specific Alpha 1.010 (1.003-1.030) 05/24/22 23:34 Urine Protein 100 mg/dl mg/dL (Negative) 05/24/22 23:34 Urine Glucose (UA) 2000 mg/dL (Negative) 05/24/22 23:34 Urine Ketones 80 mg/dL (Negative) 05/24/22 23:34 Urine Blood 4+ (Negative) 05/24/22 23:34 Urine Nitrite Negative (Negative) 05/24/22 23:34 Ur Reducing Substances Not Reportable 05/24/22 23:34 Urine Bilirubin Negative (Negative) 05/24/22 23:34 Urine Ictotest Not Reportable 05/24/22 23:34 Urine Urobilinogen < 2.0 mg/dL (<2.0) 05/24/22 23:34 Ur Leukocyte Esterase Negative (Negative) 05/24/22 23:34 Urine WBC (Auto) 2.0 /HPF (0.0-6.0) 05/24/22 23:34 Urine RBC (Auto) 10.0 /HPF (0.0-6.0) 05/24/22 23:34 U Epithel Cells (Auto) 1.0 /HPF (0-13.0) 05/24/22 23:34 Urine Mucus Few /HPF 05/24/22 23:34 Blood Type A NEGATIVE 05/25/22 22:56 Antibody Screen Negative 05/25/22 22:56 Screen Negative 05/25/22 22:56 Microbiology: Microbiology 05/25/22 13:24 Peripheral/Venous Blood Culture - Preliminary Culture in Progress 05/25/22 13:24 Peripheral/Venous Blood Culture - Preliminary Culture in Progress Sorot/IV: Voiding Method Toilet Active Medications - Current Medications Current Medications: Generic Name Dose Route Start Last Admin Trade Name Freq PRN Reason Stop Dose Admin Acetaminophen 650 mg 05/24/22 21:59 Acetaminophen 325 Mg Tab PO Q6H PRN Pain MILD(1-3)/Fever >100.5/DODD Dextrose 50 ml 05/25/22 13:11 Dextrose 50% In Water (25gm) 50 Ml Syringe IV Q30MIN PRN Hypoglycemia Protocol Famotidine 20 mg 05/26/22 10:00 Famotidine 20 Mg Tab PO QDAY TIANA Sodium Chloride 1,000 mls @ 75 mls/hr 05/26/22 06:30 05/26/22 06:36 Nacl 0.9% 1000 Ml IV 75 mls/hr DIRECT TIANA Administration Insulin Glargine 30 units 05/25/22 15:00 05/25/22 15:07 Insulin Glargine 100 Units/Ml SUB-Q 30 units ONCE TIANA Administration Insulin Human Lispro 0 unit 05/25/22 22:00 05/26/22 06:25 Insulin Lispro 100 Unit/Ml SUB-Q Not Given Q4HR TIANA Protocol Ondansetron HCl 4 mg 05/24/22 21:59 05/25/22 22:22 Ondansetron 4 Mg/2 Ml Inj IV 4 mg Q8H PRN Administration Nausea And Vomiting Sodium Chloride 10 ml 05/24/22 22:00 05/25/22 21:16 Sodium Chloride 0.9% 10 Ml Flush Syringe IV 10 ml BID TIANA Administration Sodium Chloride 10 ml 05/24/22 21:59 05/25/22 21:14 Sodium Chloride 0.9% 10 Ml Flush Syringe IV 10 ml PRN PRN Administration LINE FLUSH Nutrition/Malnutrition Assess - Dietary Evaluation Nutrition/Malnutrition Findings: Nutrition Notes Start: 05/25/22 13:22 Freq: Status: Active Protocol: Document 05/25/22 13:22 [facility] (Rec: 05/25/22 13:29 [facility] [id number]) Nutrition Notes Need for Assessment generated from: MD Order,MST Initial or Follow up Assessment Current Diagnosis Diabetes Other Pertinent Diagnosis DKA, vaginal bleeding, 9-wk , N/V, abdominal pain Current Diet NPO Labs/Tests BG was 1080upon admission Pertinent Medications Insulin gtt, D5W 1/2NS + 20mEq KCl at 125ml/hr Height 5 ft 1 in Weight 66 kg [place] Body Weight (kg) 47.72 BMI 27.5 Intake Prior to Admission Poor Subjective/Other Information RD consulted for poor oral intake (currently NPO sec to DKA; pt also with N/V) and diet education. Pt also screened for malnutrition risk . Pt with hx of DM1. She reports hyperemesis with previous and current . Burn Absent Trauma Absent GI Symptoms Nausea,Vomiting Current % PO Negligible Minimum of two criteria No #1 Nutrition Diagnosis Inadequate oral intake Etiology DKA, N/V As Evidenced by Signs and Symptoms pt NPO Is patient on ventilator? No Is Patient Ambulatory and/or Out of Bed No REE-([facility]-confined to bed) 1630.176 Kcal/Kg value to use for calculation 30 Approximate Energy Requirements Using 1980 kcal/Kg Calculation Used for Recommendations Kcal/kg Additional Notes Pro needs 1.1g/kg/day Fluid needs 1ml/kcal Nutrition Intervention Change Diet Order: Advance to Consistent CHO diet when medically feasible Goal #1 Diet advancement to meet nutrient needs Anticipated Discharge Needs: CHO-controlled diet Follow-Up By: 05/29/22 Additional Comments F/U: diet advancement, diet education needs (DM, hyperemesis)
[2022-05-25 11:24] LABS: Hematocrit 30.4 % (30.3-42.9); Hemoglobin 10.7 gm/dl (10.1-14.3); Mean Corpuscular HGB Conc 35 % (30-34); Mean Corpuscular Volume 87 fl (79-97); Platelet Count 360 K/mm3 (140-440); Red Cell Distribution Width 14.4 % (13.2-15.2)
[2022-05-25] MEDS ORDERED: LACTATED RINGERS 1,000 ML IV ONE ×2 (11:57→15:00)
[2022-05-25 12:24] LABS: Blood Urea Nitrogen 23 mg/dL (7-17); Calcium 7.8 mg/dL (8.4-10.2); Hemolysis Index 4
[2022-05-25 12:27] LABS: BUN/Creatinine Ratio 38
[2022-05-25] MEDS ORDERED: DEXTROSE 50% IN WATER (25GM) 50 ML SYRINGE IV PRN (13:11)
[2022-05-25] MEDS ORDERED: INSULIN GLARGINE 100 UNITS/ML SUB-Q SCH (15:00)
[2022-05-25] MEDS ORDERED: INSULIN LISPRO 100 UNIT/ML SUB-Q SCH (16:30)
--- NOTE | 2022-05-25 20:24 | Progress Note ---
Assessment and Plan A: 9.5 week gestation on 05/25 Brown Vaginal spotting IDDM P: Rhogam prior to discharge [facility] referral for Zofran pump F/U with [facility] in [place] - Dr. Krystian Wang Subjective - Subjective Date of service: 05/25/22 Principal diagnosis: Hyperemesis @ 9.5 weeks gestation, DKA Patient reports: vaginal bleeding (Viable IUP on U/S 05/24) Objective - Vital Signs Vital Signs: Vital Signs - 12hr 05/25/22 05/25/22 05/25/22 09:00 10:03 11:00 Temperature Pulse Rate 124 H 123 H 114 H Pulse Rate [ From Monitor] Respiratory 14 21 14 Rate Blood Pressure 138/86 138/86 120/69 O2 Sat by Pulse 100 100 100 Oximetry 05/25/22 05/25/22 05/25/22 12:00 12:01 13:00 Temperature 99.2 F Pulse Rate 127 H 126 H 122 H Pulse Rate [ 125 H From Monitor] Respiratory 24 23 18 Rate Blood Pressure 120/69 116/61 O2 Sat by Pulse 98 100 100 Oximetry 05/25/22 05/25/22 05/25/22 14:00 15:00 16:00 Temperature 99.5 F Pulse Rate 126 H 132 H 129 H Pulse Rate [ 125 H From Monitor] Respiratory 21 24 33 H Rate Blood Pressure 111/59 107/45 108/60 O2 Sat by Pulse 100 99 98 Oximetry 05/25/22 05/25/22 05/25/22 17:01 18:00 19:00 Temperature Pulse Rate 131 H 131 H 135 H Pulse Rate [ From Monitor] Respiratory 15 23 17 Rate Blood Pressure 126/58 122/66 128/72 O2 Sat by Pulse 98 100 100 Oximetry 05/25/22 19:36 Temperature Pulse Rate 118 H Pulse Rate [ From Monitor] Respiratory Rate Blood Pressure O2 Sat by Pulse Oximetry - Exam Narrative Exam: 22 y/o with previous delivery via @ 34 weeks for preeclampsia 5 months ago. Presents to ER on 05/24 with hyperemesis and in DKA. The ultrasound in the ER showed a viable fetus @ 9.4 weeks. She is now C/O brown vaginal spotting. She has a history of hyperemesis throughout her entire last . Breasts: deferred Cardiovascular: Regular rate Lungs: Clear to auscultation Abdomen: Present: soft Vulva: both: normal Uterus: Present: fundal height below umbilicus - Labs Labs: Abnormal Labs 05/24/22 05/24/22 05/24/22 18:40 18:40 22:00 WBC 23.1 H RBC Hct 47.1 H MCV 100 H MCHC Plt Count 490 H Seg Neuts % (Manual) 98.0 H Lymphocytes % (Manual) 1.0 L Seg Neutrophils # Man 22.6 H Lymphocytes # (Manual) 0.2 L VBG pH Sodium 117 L* 118 L* Potassium 6.6 H* 8.2 H* D Chloride 71.5 L 69.7 L Carbon Dioxide 6 L* 4 L* BUN 34 H 39 H Creatinine 1.4 H 1.5 H Glucose 1080 H* 1098 H* POC Glucose Calcium Phosphorus 12.60 H Magnesium 3.10 H Total Protein 8.3 H HCG, Quant 05/24/22 05/25/22 05/25/22 22:00 00:40 00:40 WBC RBC Hct MCV MCHC Plt Count Seg Neuts % (Manual) Lymphocytes % (Manual) Seg Neutrophils # Man Lymphocytes # (Manual) VBG pH 7.097 L* Sodium 123 L Potassium 5.3 H D Chloride 81.8 L Carbon Dioxide 8 L* BUN 38 H Creatinine 1.4 H Glucose 871 H* POC Glucose Calcium 8.1 L Phosphorus Magnesium Total Protein HCG, Quant 201379 H 05/25/22 05/25/22 05/25/22 00:57 02:12 03:03 WBC RBC Hct MCV MCHC Plt Count Seg Neuts % (Manual) Lymphocytes % (Manual) Seg Neutrophils # Man Lymphocytes # (Manual) VBG pH Sodium Potassium Chloride Carbon Dioxide BUN Creatinine Glucose POC Glucose > 600 H > 600 H 494 H Calcium Phosphorus Magnesium Total Protein HCG, Quant 05/25/22 05/25/22 05/25/22 04:13 04:28 06:09 WBC RBC Hct MCV MCHC Plt Count Seg Neuts % (Manual) Lymphocytes % (Manual) Seg Neutrophils # Man Lymphocytes # (Manual) VBG pH Sodium 130 L D Potassium Chloride 95.0 L Carbon Dioxide 16 L D BUN 33 H Creatinine Glucose 347 H POC Glucose 384 H 182 H Calcium Phosphorus Magnesium Total Protein HCG, Quant 05/25/22 05/25/22 05/25/22 07:08 08:07 08:57 WBC RBC Hct MCV MCHC Plt Count Seg Neuts % (Manual) Lymphocytes % (Manual) Seg Neutrophils # Man Lymphocytes # (Manual) VBG pH Sodium Potassium Chloride Carbon Dioxide BUN Creatinine Glucose POC Glucose 138 H 125 H 114 H Calcium Phosphorus Magnesium Total Protein HCG, Quant 05/25/22 05/25/22 05/25/22 10:08 11:04 11:10 WBC 28.6 H RBC 3.50 L Hct MCV MCHC 35 H Plt Count Seg Neuts % (Manual) Lymphocytes % (Manual) Seg Neutrophils # Man Lymphocytes # (Manual) VBG pH Sodium Potassium Chloride Carbon Dioxide BUN Creatinine Glucose POC Glucose 111 H 121 H Calcium Phosphorus Magnesium Total Protein HCG, Quant 05/25/22 05/25/22 05/25/22 11:10 14:02 15:04 WBC RBC Hct MCV MCHC Plt Count Seg Neuts % (Manual) Lymphocytes % (Manual) Seg Neutrophils # Man Lymphocytes # (Manual) VBG pH Sodium 136 L Potassium Chloride 107.1 H Carbon Dioxide 18 L BUN 23 H Creatinine Glucose 114 H POC Glucose 190 H 168 H Calcium 7.8 L Phosphorus Magnesium Total Protein HCG, Quant 05/25/22 05/25/22 15:55 17:03 WBC RBC Hct MCV MCHC Plt Count Seg Neuts % (Manual) Lymphocytes % (Manual) Seg Neutrophils # Man Lymphocytes # (Manual) VBG pH Sodium Potassium Chloride Carbon Dioxide BUN Creatinine Glucose POC Glucose 139 H 171 H Calcium Phosphorus Magnesium Total Protein HCG, Quant Laboratory Results - last 24 hr 05/24/22 05/24/22 05/24/22 18:40 18:40 22:00 WBC RBC Hgb Hct MCV MCH MCHC RDW Plt Count Add Manual Diff Complete Total Counted 100 Seg Neuts % (Manual) 98.0 H Band Neutrophils % 0 Lymphocytes % (Manual) 1.0 L Reactive Lymphs % (Man) 0 Monocytes % (Manual) 1.0 Eosinophils % (Manual) 0 Basophils % (Manual) 0 Metamyelocytes % 0 Myelocytes % 0 Promyelocytes % 0 Blast Cells % 0 Nucleated RBC % Not Reportable Seg Neutrophils # Man 22.6 H Band Neutrophils # 0.0 Lymphocytes # (Manual) 0.2 L Abs React Lymphs (Man) 0.0 Monocytes # (Manual) 0.2 Eosinophils # (Manual) 0.0 Basophils # (Manual) 0.0 Metamyelocytes # 0.0 Myelocytes # 0.0 Promyelocytes # 0.0 Blast Cells # 0.0 WBC Morphology Not Reportable Hypersegmented Neuts Not Reportable Hyposegmented Neuts Not Reportable Hypogranular Neuts Not Reportable Smudge Cells Not Reportable Toxic Granulation Not Reportable Toxic Vacuolation Not Reportable Dohle Bodies Not Reportable Pelger-Huet Anomaly Not Reportable Polo Rods Not Reportable Platelet Estimate Consistent w auto Clumped Platelets Not Reportable Plt Clumps, EDTA Not Reportable Large Platelets Not Reportable Giant Platelets Not Reportable Platelet Satelliting Not Reportable Plt Morphology Comment Not Reportable RBC Morphology Not Reportable Dimorphic RBCs Not Reportable Polychromasia Not Reportable Hypochromasia Not Reportable Poikilocytosis Not Reportable Anisocytosis Not Reportable Microcytosis Not Reportable Macrocytosis Not Reportable Spherocytes Not Reportable Pappenheimer Bodies Not Reportable Sickle Cells Not Reportable Target Cells Not Reportable Tear Drop Cells Not Reportable Ovalocytes Not Reportable Helmet Cells Not Reportable [place] Bodies Not Reportable [place] Rings Not Reportable [place] Cells Not Reportable Bite Cells Not Reportable Crenated Cell Not Reportable Elliptocytes Not Reportable Acanthocytes (Spur) Not Reportable Rouleaux Not Reportable Hemoglobin C Crystals Not Reportable Schistocytes Not Reportable Malaria parasites Not Reportable Prashant Bodies Not Reportable Hem Pathologist Commnt No VBG pH Sodium 118 L* Potassium 8.2 H* D Chloride 69.7 L Carbon Dioxide 4 L* Anion Gap 53 BUN 39 H Creatinine 1.5 H Estimated GFR 53 BUN/Creatinine Ratio 26 Glucose 1098 H* POC Glucose Calcium 9.5 Phosphorus 12.60 H Magnesium 3.10 H Procalcitonin HCG, Quant Urine Color Urine Turbidity Urine pH Ur Specific Gail Urine Protein Urine Glucose (UA) Urine Ketones Urine Blood Urine Nitrite Ur Reducing Substances Urine Bilirubin Urine Ictotest Urine Urobilinogen Ur Leukocyte Esterase Urine WBC (Auto) Urine RBC (Auto) U Epithel Cells (Auto) Urine Mucus Blood Type A NEGATIVE Antibody Screen Negative 05/24/22 05/24/22 05/25/22 22:00 23:34 00:40 WBC RBC Hgb Hct MCV MCH MCHC RDW Plt Count Add Manual Diff Total Counted Seg Neuts % (Manual) Band Neutrophils % Lymphocytes % (Manual) Reactive Lymphs % (Man) Monocytes % (Manual) Eosinophils % (Manual) Basophils % (Manual) Metamyelocytes % Myelocytes % Promyelocytes % Blast Cells % Nucleated RBC % Seg Neutrophils # Man Band Neutrophils # Lymphocytes # (Manual) Abs React Lymphs (Man) Monocytes # (Manual) Eosinophils # (Manual) Basophils # (Manual) Metamyelocytes # Myelocytes # Promyelocytes # Blast Cells # WBC Morphology Hypersegmented Neuts Hyposegmented Neuts Hypogranular Neuts Smudge Cells Toxic Granulation Toxic Vacuolation Dohle Bodies Pelger-Huet Anomaly Polo Rods Platelet Estimate Clumped Platelets Plt Clumps, EDTA Large Platelets Giant Platelets Platelet Satelliting Plt Morphology Comment RBC Morphology Dimorphic RBCs Polychromasia Hypochromasia Poikilocytosis Anisocytosis Microcytosis Macrocytosis Spherocytes Pappenheimer Bodies Sickle Cells Target Cells Tear Drop Cells Ovalocytes Helmet Cells [place] Bodies [place] Rings Ingris Cells Bite Cells Crenated Cell Elliptocytes Acanthocytes (Spur) Rouleaux Hemoglobin C Crystals Schistocytes Malaria parasites Rpashant Bodies Hem Pathologist Commnt VBG pH 7.097 L* Sodium Potassium Chloride Carbon Dioxide Anion Gap BUN Creatinine Estimated GFR BUN/Creatinine Ratio Glucose POC Glucose Calcium Phosphorus Magnesium Procalcitonin HCG, Quant 508906 H Urine Color Straw Urine Turbidity Hazy Urine pH 5.0 Ur Specific Gail 1.010 Urine Protein 100 mg/dl Urine Glucose (UA) 2000 Urine Ketones 80 Urine Blood 4+ Urine Nitrite Negative Ur Reducing Substances Not Reportable Urine Bilirubin Negative Urine Ictotest Not Reportable Urine Urobilinogen < 2.0 Ur Leukocyte Esterase Negative Urine WBC (Auto) 2.0 Urine RBC (Auto) 10.0 U Epithel Cells (Auto) 1.0 Urine Mucus Few Blood Type Antibody Screen 05/25/22 05/25/22 05/25/22 00:40 00:57 02:12 WBC RBC Hgb Hct MCV MCH MCHC RDW Plt Count Add Manual Diff Total Counted Seg Neuts % (Manual) Band Neutrophils % Lymphocytes % (Manual) Reactive Lymphs % (Man) Monocytes % (Manual) Eosinophils % (Manual) Basophils % (Manual) Metamyelocytes % Myelocytes % Promyelocytes % Blast Cells % Nucleated RBC % Seg Neutrophils # Man Band Neutrophils # Lymphocytes # (Manual) Abs React Lymphs (Man) Monocytes # (Manual) Eosinophils # (Manual) Basophils # (Manual) Metamyelocytes # Myelocytes # Promyelocytes # Blast Cells # WBC Morphology Hypersegmented Neuts Hyposegmented Neuts Hypogranular Neuts Smudge Cells Toxic Granulation Toxic Vacuolation Dohle Bodies Pelger-Huet Anomaly Polo Rods Platelet Estimate Clumped Platelets Plt Clumps, EDTA Large Platelets Giant Platelets Platelet Satelliting Plt Morphology Comment RBC Morphology Dimorphic RBCs Polychromasia Hypochromasia Poikilocytosis Anisocytosis Microcytosis Macrocytosis Spherocytes Pappenheimer Bodies Sickle Cells Target Cells Tear Drop Cells Ovalocytes Helmet Cells [place] Bodies [place] Rings [place] Cells Bite Cells Crenated Cell Elliptocytes Acanthocytes (Spur) Rouleaux Hemoglobin C Crystals Schistocytes Malaria parasites Prashant Bodies Hem Pathologist Commnt VBG pH Sodium 123 L Potassium 5.3 H D Chloride 81.8 L Carbon Dioxide 8 L* Anion Gap 39 BUN 38 H Creatinine 1.4 H Estimated GFR 57 BUN/Creatinine Ratio 27 Glucose 871 H* POC Glucose > 600 H > 600 H Calcium 8.1 L Phosphorus Magnesium Procalcitonin HCG, Quant Urine Color Urine Turbidity Urine pH Ur Specific Gail Urine Protein Urine Glucose (UA) Urine Ketones Urine Blood Urine Nitrite Ur Reducing Substances Urine Bilirubin Urine Ictotest Urine Urobilinogen Ur Leukocyte Esterase Urine WBC (Auto) Urine RBC (Auto) U Epithel Cells (Auto) Urine Mucus Blood Type Antibody Screen 05/25/22 05/25/22 05/25/22 03:03 04:13 04:28 WBC RBC Hgb Hct MCV MCH MCHC RDW Plt Count Add Manual Diff Total Counted Seg Neuts % (Manual) Band Neutrophils % Lymphocytes % (Manual) Reactive Lymphs % (Man) Monocytes % (Manual) Eosinophils % (Manual) Basophils % (Manual) Metamyelocytes % Myelocytes % Promyelocytes % Blast Cells % Nucleated RBC % Seg Neutrophils # Man Band Neutrophils # Lymphocytes # (Manual) Abs React Lymphs (Man) Monocytes # (Manual) Eosinophils # (Manual) Basophils # (Manual) Metamyelocytes # Myelocytes # Promyelocytes # Blast Cells # WBC Morphology Hypersegmented Neuts Hyposegmented Neuts Hypogranular Neuts Smudge Cells Toxic Granulation Toxic Vacuolation Dohle Bodies Pelger-Huet Anomaly Polo Rods Platelet Estimate Clumped Platelets Plt Clumps, EDTA Large Platelets Giant Platelets Platelet Satelliting Plt Morphology Comment RBC Morphology Dimorphic RBCs Polychromasia Hypochromasia Poikilocytosis Anisocytosis Microcytosis Macrocytosis Spherocytes Pappenheimer Bodies Sickle Cells Target Cells Tear Drop Cells Ovalocytes Helmet Cells [place] Bodies [place] Rings [place] Cells Bite Cells Crenated Cell Elliptocytes Acanthocytes (Spur) Rouleaux Hemoglobin C Crystals Schistocytes Malaria parasites Prashant Bodies Hem Pathologist Commnt VBG pH Sodium 130 L D Potassium 3.8 D Chloride 95.0 L Carbon Dioxide 16 L D Anion Gap 23 BUN 33 H Creatinine 1.1 Estimated GFR > 60 BUN/Creatinine Ratio 30 Glucose 347 H POC Glucose 494 H 384 H Calcium 8.5 Phosphorus Magnesium Procalcitonin HCG, Quant Urine Color Urine Turbidity Urine pH Ur Specific Gail Urine Protein Urine Glucose (UA) Urine Ketones Urine Blood Urine Nitrite Ur Reducing Substances Urine Bilirubin Urine Ictotest Urine Urobilinogen Ur Leukocyte Esterase Urine WBC (Auto) Urine RBC (Auto) U Epithel Cells (Auto) Urine Mucus Blood Type Antibody Screen 05/25/22 05/25/22 05/25/22 06:09 07:08 08:07 WBC RBC Hgb Hct MCV MCH MCHC RDW Plt Count Add Manual Diff Total Counted Seg Neuts % (Manual) Band Neutrophils % Lymphocytes % (Manual) Reactive Lymphs % (Man) Monocytes % (Manual) Eosinophils % (Manual) Basophils % (Manual) Metamyelocytes % Myelocytes % Promyelocytes % Blast Cells % Nucleated RBC % Seg Neutrophils # Man Band Neutrophils # Lymphocytes # (Manual) Abs React Lymphs (Man) Monocytes # (Manual) Eosinophils # (Manual) Basophils # (Manual) Metamyelocytes # Myelocytes # Promyelocytes # Blast Cells # WBC Morphology Hypersegmented Neuts Hyposegmented Neuts Hypogranular Neuts Smudge Cells Toxic Granulation Toxic Vacuolation Dohle Bodies Pelger-Huet Anomaly Polo Rods Platelet Estimate Clumped Platelets Plt Clumps, EDTA Large Platelets Giant Platelets Platelet Satelliting Plt Morphology Comment RBC Morphology Dimorphic RBCs Polychromasia Hypochromasia Poikilocytosis Anisocytosis Microcytosis Macrocytosis Spherocytes Pappenheimer Bodies Sickle Cells Target Cells Tear Drop Cells Ovalocytes Helmet Cells [place] Bodies [place] Rings [place] Cells Bite Cells Crenated Cell Elliptocytes Acanthocytes (Spur) Rouleaux Hemoglobin C Crystals Schistocytes Malaria parasites Prashant Bodies Hem Pathologist Commnt VBG pH Sodium Potassium Chloride Carbon Dioxide Anion Gap BUN Creatinine Estimated GFR BUN/Creatinine Ratio Glucose POC Glucose 182 H 138 H 125 H Calcium Phosphorus Magnesium Procalcitonin HCG, Quant Urine Color Urine Turbidity Urine pH Ur Specific Gail Urine Protein Urine Glucose (UA) Urine Ketones Urine Blood Urine Nitrite Ur Reducing Substances Urine Bilirubin Urine Ictotest Urine Urobilinogen Ur Leukocyte Esterase Urine WBC (Auto) Urine RBC (Auto) U Epithel Cells (Auto) Urine Mucus Blood Type Antibody Screen 05/25/22 05/25/22 05/25/22 08:57 10:08 11:04 WBC RBC Hgb Hct MCV MCH MCHC RDW Plt Count Add Manual Diff Total Counted Seg Neuts % (Manual) Band Neutrophils % Lymphocytes % (Manual) Reactive Lymphs % (Man) Monocytes % (Manual) Eosinophils % (Manual) Basophils % (Manual) Metamyelocytes % Myelocytes % Promyelocytes % Blast Cells % Nucleated RBC % Seg Neutrophils # Man Band Neutrophils # Lymphocytes # (Manual) Abs React Lymphs (Man) Monocytes # (Manual) Eosinophils # (Manual) Basophils # (Manual) Metamyelocytes # Myelocytes # Promyelocytes # Blast Cells # WBC Morphology Hypersegmented Neuts Hyposegmented Neuts Hypogranular Neuts Smudge Cells Toxic Granulation Toxic Vacuolation Dohle Bodies Pelger-Huet Anomaly Polo Rods Platelet Estimate Clumped Platelets Plt Clumps, EDTA Large Platelets Giant Platelets Platelet Satelliting Plt Morphology Comment RBC Morphology Dimorphic RBCs Polychromasia Hypochromasia Poikilocytosis Anisocytosis Microcytosis Macrocytosis Spherocytes Pappenheimer Bodies Sickle Cells Target Cells Tear Drop Cells Ovalocytes Helmet Cells [place] Bodies [place] Rings Ingris Cells Bite Cells Crenated Cell Elliptocytes Acanthocytes (Spur) Rouleaux Hemoglobin C Crystals Schistocytes Malaria parasites Prashant Bodies Hem Pathologist Commnt VBG pH Sodium Potassium Chloride Carbon Dioxide Anion Gap BUN Creatinine Estimated GFR BUN/Creatinine Ratio Glucose POC Glucose 114 H 111 H 121 H Calcium Phosphorus Magnesium Procalcitonin HCG, Quant Urine Color Urine Turbidity Urine pH Ur Specific Gail Urine Protein Urine Glucose (UA) Urine Ketones Urine Blood Urine Nitrite Ur Reducing Substances Urine Bilirubin Urine Ictotest Urine Urobilinogen Ur Leukocyte Esterase Urine WBC (Auto) Urine RBC (Auto) U Epithel Cells (Auto) Urine Mucus Blood Type Antibody Screen 05/25/22 05/25/22 05/25/22 11:10 11:10 12:01 WBC 28.6 H RBC 3.50 L Hgb 10.7 D Hct 30.4 D MCV 87 MCH 31 MCHC 35 H RDW 14.4 Plt Count 360 Add Manual Diff Total Counted Seg Neuts % (Manual) Band Neutrophils % Lymphocytes % (Manual) Reactive Lymphs % (Man) Monocytes % (Manual) Eosinophils % (Manual) Basophils % (Manual) Metamyelocytes % Myelocytes % Promyelocytes % Blast Cells % Nucleated RBC % Seg Neutrophils # Man Band Neutrophils # Lymphocytes # (Manual) Abs React Lymphs (Man) Monocytes # (Manual) Eosinophils # (Manual) Basophils # (Manual) Metamyelocytes # Myelocytes # Promyelocytes # Blast Cells # WBC Morphology Hypersegmented Neuts Hyposegmented Neuts Hypogranular Neuts Smudge Cells Toxic Granulation Toxic Vacuolation Dohle Bodies Pelger-Huet Anomaly Polo Rods Platelet Estimate Clumped Platelets Plt Clumps, EDTA Large Platelets Giant Platelets Platelet Satelliting Plt Morphology Comment RBC Morphology Dimorphic RBCs Polychromasia Hypochromasia Poikilocytosis Anisocytosis Microcytosis Macrocytosis Spherocytes Pappenheimer Bodies Sickle Cells Target Cells Tear Drop Cells Ovalocytes Helmet Cells [place] Bodies [place] Rings Ingris Cells Bite Cells Crenated Cell Elliptocytes Acanthocytes (Spur) Rouleaux Hemoglobin C Crystals Schistocytes Malaria parasites Prashant Bodies Hem Pathologist Commnt VBG pH Sodium 136 L Potassium 4.1 Chloride 107.1 H Carbon Dioxide 18 L Anion Gap 15 BUN 23 H Creatinine 0.6 Estimated GFR > 60 BUN/Creatinine Ratio 38 Glucose 114 H POC Glucose 104 Calcium 7.8 L Phosphorus 2.80 D Magnesium 2.20 Procalcitonin HCG, Quant Urine Color Urine Turbidity Urine pH Ur Specific Gail Urine Protein Urine Glucose (UA) Urine Ketones Urine Blood Urine Nitrite Ur Reducing Substances Urine Bilirubin Urine Ictotest Urine Urobilinogen Ur Leukocyte Esterase Urine WBC (Auto) Urine RBC (Auto) U Epithel Cells (Auto) Urine Mucus Blood Type Antibody Screen 05/25/22 05/25/22 05/25/22 13:06 13:24 14:02 WBC RBC Hgb Hct MCV MCH MCHC RDW Plt Count Add Manual Diff Total Counted Seg Neuts % (Manual) Band Neutrophils % Lymphocytes % (Manual) Reactive Lymphs % (Man) Monocytes % (Manual) Eosinophils % (Manual) Basophils % (Manual) Metamyelocytes % Myelocytes % Promyelocytes % Blast Cells % Nucleated RBC % Seg Neutrophils # Man Band Neutrophils # Lymphocytes # (Manual) Abs React Lymphs (Man) Monocytes # (Manual) Eosinophils # (Manual) Basophils # (Manual) Metamyelocytes # Myelocytes # Promyelocytes # Blast Cells # WBC Morphology Hypersegmented Neuts Hyposegmented Neuts Hypogranular Neuts Smudge Cells Toxic Granulation Toxic Vacuolation Dohle Bodies Pelger-Huet Anomaly Polo Rods Platelet Estimate Clumped Platelets Plt Clumps, EDTA Large Platelets Giant Platelets Platelet Satelliting Plt Morphology Comment RBC Morphology Dimorphic RBCs Polychromasia Hypochromasia Poikilocytosis Anisocytosis Microcytosis Macrocytosis Spherocytes Pappenheimer Bodies Sickle Cells Target Cells Tear Drop Cells Ovalocytes Helmet Cells [place] Bodies [place] Rings Ingris Cells Bite Cells Crenated Cell Elliptocytes Acanthocytes (Spur) Rouleaux Hemoglobin C Crystals Schistocytes Malaria parasites Prashant Bodies Hem Pathologist Commnt VBG pH Sodium Potassium Chloride Carbon Dioxide Anion Gap BUN Creatinine Estimated GFR BUN/Creatinine Ratio Glucose POC Glucose 96 190 H Calcium Phosphorus Magnesium Procalcitonin 1.11 HCG, Quant Urine Color Urine Turbidity Urine pH Ur Specific Gail Urine Protein Urine Glucose (UA) Urine Ketones Urine Blood Urine Nitrite Ur Reducing Substances Urine Bilirubin Urine Ictotest Urine Urobilinogen Ur Leukocyte Esterase Urine WBC (Auto) Urine RBC (Auto) U Epithel Cells (Auto) Urine Mucus Blood Type Antibody Screen 05/25/22 05/25/22 05/25/22 15:04 15:55 17:03 WBC RBC Hgb Hct MCV MCH MCHC RDW Plt Count Add Manual Diff Total Counted Seg Neuts % (Manual) Band Neutrophils % Lymphocytes % (Manual) Reactive Lymphs % (Man) Monocytes % (Manual) Eosinophils % (Manual) Basophils % (Manual) Metamyelocytes % Myelocytes % Promyelocytes % Blast Cells % Nucleated RBC % Seg Neutrophils # Man Band Neutrophils # Lymphocytes # (Manual) Abs React Lymphs (Man) Monocytes # (Manual) Eosinophils # (Manual) Basophils # (Manual) Metamyelocytes # Myelocytes # Promyelocytes # Blast Cells # WBC Morphology Hypersegmented Neuts Hyposegmented Neuts Hypogranular Neuts Smudge Cells Toxic Granulation Toxic Vacuolation Dohle Bodies Pelger-Huet Anomaly Polo Rods Platelet Estimate Clumped Platelets Plt Clumps, EDTA Large Platelets Giant Platelets Platelet Satelliting Plt Morphology Comment RBC Morphology Dimorphic RBCs Polychromasia Hypochromasia Poikilocytosis Anisocytosis Microcytosis Macrocytosis Spherocytes Pappenheimer Bodies Sickle Cells Target Cells Tear Drop Cells Ovalocytes Helmet Cells [place] Bodies [place] Rings [place] Cells Bite Cells Crenated Cell Elliptocytes Acanthocytes (Spur) Rouleaux Hemoglobin C Crystals Schistocytes Malaria parasites Prashant Bodies Hem Pathologist Commnt VBG pH Sodium Potassium Chloride Carbon Dioxide Anion Gap BUN Creatinine Estimated GFR BUN/Creatinine Ratio Glucose POC Glucose 168 H 139 H 171 H Calcium Phosphorus Magnesium Procalcitonin HCG, Quant Urine Color Urine Turbidity Urine pH Ur Specific Gail Urine Protein Urine Glucose (UA) Urine Ketones Urine Blood Urine Nitrite Ur Reducing Substances Urine Bilirubin Urine Ictotest Urine Urobilinogen Ur Leukocyte Esterase Urine WBC (Auto) Urine RBC (Auto) U Epithel Cells (Auto) Urine Mucus Blood Type Antibody Screen
[2022-05-25] MEDS: INSULIN LISPRO 100 UNIT/ML SUB-Q SCH (21:40)
[2022-05-25 23:29] LABS: BUN/Creatinine Ratio 20; Blood Urea Nitrogen 16 mg/dL (7-17); Calcium 8.1 mg/dL (8.4-10.2); Hemolysis Index 8
[2022-05-26] MEDS: INSULIN LISPRO 100 UNIT/ML SUB-Q SCH ×4 (02:08→13:09)
--- NOTE | 2022-05-26 04:34 | Consultation ---
DATE OF CONSULTATION: 05/25/2022 PULMONARY CRITICAL CARE CONSULT NOTE CONSULTING PHYSICIAN: Dr. Stephen. REASON FOR CONSULTATION: Diabetic ketoacidosis, nausea and vomiting. CHIEF COMPLAINT AND HISTORY OF PRESENT ILLNESS: The patient is a now 22-year-old female with a past medical history significant for type 1 diabetes diagnosed when she was 6 years old on insulin at home, came into the Emergency Room complaining of nausea and vomiting associated with abdominal pain. Of note, she is 9 weeks and had noticed some vaginal spotting earlier on the day of presentation. She complained of some dysuria. She denied gross hematuria. She denied fevers. She had some chills. She denied any sick contacts. She denied any hemoptysis. She has got some nonproductive mild cough. She stated that she had dealt with hyperemesis gravidarum during her previous . She had been feeling bad for about 3 weeks. She has been taking her insulin as directed at home and has been compliant with all other medications. In the Emergency Room, she was found to be in diabetic ketoacidosis and ultrasound revealed a single, living, intrauterine with estimated gestational age about 9 weeks and 4 days. She was started on a DKA protocol, IV fluid resuscitation, IV insulin drip and ICU admission was requested and granted. When I stopped by to see her, she was resting in bed. She was still a little bit nausea, had just received some antiemetics. She remained on IV insulin drip at 2 units per hour. She denied any chest pain. She was feeling about the same, certainly not worse. She denied any abdominal pain. The nurse had mentioned some spotting also noted when she went to the bedside commode to use the bathroom. She denies any new leg pain or swelling, either unilaterally or bilaterally or any suggestion of a deep venous thrombosis. With regard to tobacco use/abuse history, she denies tobacco use. This really is as much of the history of presentation as I have. PAST MEDICAL HISTORY: Diabetes, gravid uterus. PAST SURGICAL HISTORY: Denies. MEDICATIONS: She was on at the time I stopped by to see according to the medication administration record included the following: Tylenol 650 mg p.o. q.6 hours p.r.n. mild pain or fevers, Pepcid 20 mg IV daily as well as p.o. daily depending on her nausea and vomiting, insulin was going at 2 units per hour, morphine sulfate 2 mg IV q. 4 hours p.r.n. moderate pain and 4 mg IV q.4 hours p.r.n. severe pain, Zofran 4 mg IV q 8 hours p.r.n. nausea and vomiting. ALLERGIES: No known drug allergies. DIET: She states she has gained weight appropriately during her . Denies significant weight changes otherwise. FAMILY AND SOCIAL HISTORY: Lives in the community. Denies alcohol, tobacco or illicit drug use or abuse. FAMILY HISTORY: Otherwise, noncontributory. REVIEW OF SYSTEMS: No loss of consciousness. No new onset seizures. No new onset focal weakness. Denies gross hematuria. She has had this spotting. Denies hematochezia, melena. She denies any new-onset seizures. She denies any new-onset focal weakness. She denies heat or cold intolerance. Complete 13-system review of system was obtained. Pertinent positives and/or negatives as in body of history above, otherwise they are noncontributory. PHYSICAL EXAMINATION: VITAL SIGNS: At presentation in the Emergency Room, vital signs, she was afebrile 98.9 degrees Fahrenheit, pulse of 123, respiratory rate as high as 34, blood pressure 130/61, O2 sats 100% at the time I saw her, that was on room air. She has had a T-max of 100 degrees Fahrenheit earlier this morning. GENERAL: She is a young female. Normocephalic, atraumatic. Resting in bed with mildly increased respiratory effort at rest. HEAD, EYES, EARS, NOSE AND THROAT: Anicteric. No conjunctival erythema. Oropharynx was moist. NECK: No gross jugular venous distention, no thyromegaly. Grossly, there were no palpable lymph nodes in the supraclavicular or submandibular lymph node chains. LUNGS: Auscultation of both lung blood are unremarkable. Clear bilaterally with good bilateral air movement. HEART: Sounds 1 and 2 are heard, regular rate and rhythm at the time of my evaluation without overt rubs or murmurs. ABDOMEN: Soft, protuberant. Bowel sounds are positive, nontender, no palpable hepatosplenomegaly. EXTREMITIES: Without overt digital clubbing or cyanosis, no pedal edema. Pedal pulses were 2+ bilaterally. NEUROLOGIC: Pupils were equal, round, about 4 mm, reactive to light. Extraocular muscles and movements were intact. She moves all 4 extremities spontaneously. SKIN: Normal turgor in the areas examined without overt cellulitis or rash. Please see the wound care nurses' notes for full description of her skin. PSYCHIATRIC: Mood was normal. Affect was somewhat anxious. She did have intact judgment and insight. LABORATORY DATA: From my review as follows: Admission white cell count 23,100, hemoglobin 14.1, hematocrit 47.1, platelet count of 419. No band forms on the manual differential. Venous blood gas showed a pH of 7.10 at presentation. Serum sodium 117, potassium 6.6, that is now within normal limits. Chloride was 72, bicarbonate was 6, BUN was 34, creatinine was 1.4. Serum glucose was 1080. Liver function tests essentially within normal limits. Beta HCG ___. Urinalysis was negative for nitrites and leukocyte esterase. She was spilling glucose in her urine. No microbiology studies for my review. ultrasound is as mentioned above. ASSESSMENT: 1. Diabetic ketoacidosis. 2. Nausea and vomiting. 3. Gravid uterus 9 weeks' . 4. Leukocytosis, presumably a stress leukocytosis. 5. Hyperkalemia. 6. Vaginal spotting possible threatened . PLAN: I am definitely bothered about the leukocytosis. I do feel that it maybe most likely a stress leukocytosis though I will get a procalcitonin level, CRP levels to help guide clinical decision making with possible begin empiric antibiotics. Urinalysis will be sent if one has not already been collected. CODING AUDITOR consultation has been placed and they will be following along with us. She will remain on the DKA protocol. Serial electrolytes will be ordered. Gentle volume resuscitation, her gap appears to be closing. Serum creatinine is now within normal range. She is on GI prophylaxis, DVT prophylaxis is with SCDs. Flu and pneumonia vaccination will be addressed per protocol. Hopefully, her baby does well, I will be reaching out to the CODING AUDITOR team at this point. I will have the registered nurse called the CODING AUDITOR team. I do not see any notes from them at this point. The patient does not appear to be having any contractions or any other discomfort; otherwise, there is no rom menorrhagia at this point or vaginal bleeding, but she will be kept in the ICU and observe closely. Thank you very much for the consult. We will follow along and make further recommendations as picture progresses/becomes clearer. She is critically ill at risk of from endocrine system decompensation. At this time, I spent about 35-40 minutes of critical care time without overlap and excluding any procedural time that may be necessary. TID: [id number] RECEIPT: [id number] ANASTASIIA/MAXIMILIANO
[2022-05-26 05:43] LABS: Hematocrit 30.4 % (30.3-42.9); Hemoglobin 10.4 gm/dl (10.1-14.3); Mean Corpuscular HGB Conc 34 % (30-34); Mean Corpuscular Volume 88 fl (79-97); Platelet Count 287 K/mm3 (140-440); Red Blood Count 3.46 M/mm3 (3.65-5.03); Red Cell Distribution Width 14.9 % (13.2-15.2)
[2022-05-26 05:47] LABS: Blood Urea Nitrogen 11 mg/dL (7-17); Hemolysis Index 13
[2022-05-26 05:49] LABS: BUN/Creatinine Ratio 22
[2022-05-26] MEDS ORDERED: POTASSIUM CHLORIDE 10 MEQ 10 MEQ/100 ML BAG IV ONE (06:28)
[2022-05-26] MEDS ORDERED: SODIUM CHLORIDE 0.9% 1000 ML 1,000 ML IV SCH (06:30)
[2022-05-26] MEDS ORDERED: METOCLOPRAMIDE 10 MG/2 ML INJ IV ONE (06:47)
[2022-05-26] MEDS ORDERED: POTASSIUM PHOSPHATE 30 MMOL in SODIUM CHLORIDE 0.9% 500 ML 500 ML IV SCH (08:30)
[2022-05-26] MEDS ORDERED: POTASSIUM CHLORIDE ER 20 MEQ TAB PO SCH (10:00)
[2022-05-26] MEDS ORDERED: FAMOTIDINE 20 MG TAB PO SCH (10:00)
--- NOTE | 2022-05-26 10:40 | Progress Note ---
Assessment and Plan Diabetic ketoacidosis Nausea and vomiting Gravid uterus 9 weeks Leukocytosis Hyperkalemia Vaginal spotting possible threatened - Rhogam per LINOTYPE MACHINIST recommendations - continue accuchecks with glycemic control per SSI for target blood glucose < 180 mg/dL - prn supplemental oxygen to keep O2 sats > 90% - prn bronchodilators (JAMES) with pulm hygiene per RT - continue to avoid nephrotoxins, renally dose all medications - mobility protocols to prevent pressure ulcers - PT/OT as tolerated - Wound care per RN/WCT - tobacco abstinence strongly counseled at the bedside - home oxygen evaluation at discharge - GI & VTE prophylaxis - Flu & pneumovax per protocol - prn analgesia per pain score - continue other care per attending / other consultants ... re-evaluate in am & prn Subjective Date of service: 05/26/22 Principal diagnosis: DKA; N&V; state; Leukocytosis; Hyperkalemia; Vaginal spotting Interval history: Patient is seen today for: Diabetic ketoacidosis; Nausea and vomiting; Gravid uterus 9 weeks ; Leukocytosis; Hyperkalemia; Vaginal spotting possible threatened Seen and examined at bedside; 24hour events reviewed; nursing and respiratory care staff consulted; no adverse overnight events reported to me; resting peacefully in bed; AG has closed; off IV insulin; seen by OBGYN and to f/up outpatient; noo high grade fevers; procalcitonin unremarkable and leucocytosis is better; Objective Vital Signs - 12hr 05/25/22 05/26/22 05/26/22 23:00 00:00 01:00 Temperature 100 F H Pulse Rate 118 H 104 H 112 H Pulse Rate [ 104 H From Monitor] Respiratory 22 Rate Blood Pressure 144/85 114/68 117/63 O2 Sat by Pulse 100 98 100 Oximetry 05/26/22 05/26/22 05/26/22 02:00 03:00 04:00 Temperature 99 F Pulse Rate 135 H 103 H 108 H Pulse Rate [ 102 H From Monitor] Respiratory 21 27 H 23 Rate Blood Pressure 142/81 109/68 112/61 O2 Sat by Pulse 99 100 96 Oximetry 05/26/22 05/26/22 05/26/22 05:00 06:01 07:00 Temperature Pulse Rate 105 H 105 H 99 H Pulse Rate [ From Monitor] Respiratory 20 21 27 H Rate Blood Pressure 110/67 135/84 121/71 O2 Sat by Pulse 97 100 Oximetry 05/26/22 05/26/22 05/26/22 07:59 08:00 09:00 Temperature 98.4 F Pulse Rate 100 H 99 H 106 H Pulse Rate [ 100 H From Monitor] Respiratory 24 21 Rate Blood Pressure 105/60 133/88 O2 Sat by Pulse 99 99 Oximetry 05/26/22 10:00 Temperature Pulse Rate 95 H Pulse Rate [ From Monitor] Respiratory 25 H Rate Blood Pressure 106/61 O2 Sat by Pulse 99 Oximetry Constitutional: appears uncomfortable, other (young female with normal respiratory effort at rest) Eyes: non-icteric ENT: oropharynx moist Neck: supple, no lymphadenopathy, no JVD Effort: normal Ascultation: Bilateral: clear Percussion: Bilateral: not dull Cardiovascular: regular rate and rhythm Gastrointestinal: normoactive bowel sounds, soft, non-tender, non-distended (protuberant) Integumentary: normal Extremities: no edema, pulses normal, no ischemia or petechiae Neurologic: non-focal exam, pupils equal and round, CN II-XII normal, motor strength normal and Psychiatric: mood appropriate, affect normal CBC and BMP: 05/26/22 05:13 05/26/22 05:13 Abnormal lab findings: Abnormal Labs 05/24/22 05/24/22 05/24/22 18:40 18:40 22:00 WBC 23.1 H RBC Hct 47.1 H MCV 100 H MCHC Plt Count 490 H Seg Neuts % (Manual) 98.0 H Lymphocytes % (Manual) 1.0 L Seg Neutrophils # Man 22.6 H Lymphocytes # (Manual) 0.2 L VBG pH Sodium 117 L* 118 L* Potassium 6.6 H* 8.2 H* D Chloride 71.5 L 69.7 L Carbon Dioxide 6 L* 4 L* BUN 34 H 39 H Creatinine 1.4 H 1.5 H Glucose 1080 H* 1098 H* POC Glucose Hemoglobin A1c Calcium Phosphorus 12.60 H Magnesium 3.10 H Total Protein 8.3 H HCG, Quant 05/24/22 05/25/22 05/25/22 22:00 00:40 00:40 WBC RBC Hct MCV MCHC Plt Count Seg Neuts % (Manual) Lymphocytes % (Manual) Seg Neutrophils # Man Lymphocytes # (Manual) VBG pH 7.097 L* Sodium 123 L Potassium 5.3 H D Chloride 81.8 L Carbon Dioxide 8 L* BUN 38 H Creatinine 1.4 H Glucose 871 H* POC Glucose Hemoglobin A1c Calcium 8.1 L Phosphorus Magnesium Total Protein HCG, Quant [id number] H 05/25/22 05/25/22 05/25/22 00:57 02:12 03:03 WBC RBC Hct MCV MCHC Plt Count Seg Neuts % (Manual) Lymphocytes % (Manual) Seg Neutrophils # Man Lymphocytes # (Manual) VBG pH Sodium Potassium Chloride Carbon Dioxide BUN Creatinine Glucose POC Glucose > 600 H > 600 H 494 H Hemoglobin A1c Calcium Phosphorus Magnesium Total Protein HCG, Quant 05/25/22 05/25/22 05/25/22 04:13 04:28 06:09 WBC RBC Hct MCV MCHC Plt Count Seg Neuts % (Manual) Lymphocytes % (Manual) Seg Neutrophils # Man Lymphocytes # (Manual) VBG pH Sodium 130 L D Potassium Chloride 95.0 L Carbon Dioxide 16 L D BUN 33 H Creatinine Glucose 347 H POC Glucose 384 H 182 H Hemoglobin A1c Calcium Phosphorus Magnesium Total Protein HCG, Quant 05/25/22 05/25/22 05/25/22 07:08 08:07 08:57 WBC RBC Hct MCV MCHC Plt Count Seg Neuts % (Manual) Lymphocytes % (Manual) Seg Neutrophils # Man Lymphocytes # (Manual) VBG pH Sodium Potassium Chloride Carbon Dioxide BUN Creatinine Glucose POC Glucose 138 H 125 H 114 H Hemoglobin A1c Calcium Phosphorus Magnesium Total Protein HCG, Quant 05/25/22 05/25/22 05/25/22 10:08 11:04 11:10 WBC 28.6 H RBC 3.50 L Hct MCV MCHC 35 H Plt Count Seg Neuts % (Manual) Lymphocytes % (Manual) Seg Neutrophils # Man Lymphocytes # (Manual) VBG pH Sodium Potassium Chloride Carbon Dioxide BUN Creatinine Glucose POC Glucose 111 H 121 H Hemoglobin A1c Calcium Phosphorus Magnesium Total Protein HCG, Quant 05/25/22 05/25/22 05/25/22 11:10 14:02 15:04 WBC RBC Hct MCV MCHC Plt Count Seg Neuts % (Manual) Lymphocytes % (Manual) Seg Neutrophils # Man Lymphocytes # (Manual) VBG pH Sodium 136 L Potassium Chloride 107.1 H Carbon Dioxide 18 L BUN 23 H Creatinine Glucose 114 H POC Glucose 190 H 168 H Hemoglobin A1c Calcium 7.8 L Phosphorus Magnesium Total Protein HCG, Quant 05/25/22 05/25/22 05/25/22 15:55 17:03 21:16 WBC RBC Hct MCV MCHC Plt Count Seg Neuts % (Manual) Lymphocytes % (Manual) Seg Neutrophils # Man Lymphocytes # (Manual) VBG pH Sodium Potassium Chloride Carbon Dioxide BUN Creatinine Glucose POC Glucose 139 H 171 H 349 H Hemoglobin A1c Calcium Phosphorus Magnesium Total Protein HCG, Quant 05/25/22 05/26/22 05/26/22 22:56 02:02 05:13 WBC 21.6 H RBC 3.46 L Hct MCV MCHC Plt Count Seg Neuts % (Manual) Lymphocytes % (Manual) Seg Neutrophils # Man Lymphocytes # (Manual) VBG pH Sodium 132 L Potassium Chloride Carbon Dioxide 19 L BUN Creatinine Glucose 279 H POC Glucose 188 H Hemoglobin A1c Calcium 8.1 L Phosphorus 1.20 L D Magnesium Total Protein HCG, Quant 05/26/22 05/26/22 05/26/22 05:13 05:13 08:48 WBC RBC Hct MCV MCHC Plt Count Seg Neuts % (Manual) Lymphocytes % (Manual) Seg Neutrophils # Man Lymphocytes # (Manual) VBG pH Sodium 136 L Potassium 3.3 L Chloride Carbon Dioxide 20 L BUN Creatinine 0.5 L Glucose 143 H POC Glucose 213 H Hemoglobin A1c 9.7 H Calcium 8.0 L Phosphorus 1.80 L D Magnesium Total Protein HCG, Quant Allied health notes reviewed: nursing
[2022-05-26] MEDS ORDERED: INSULIN GLARGINE 100 UNITS/ML SUB-Q SCH (11:00)
--- NOTE | 2022-05-26 11:34 | Event Note ---
Date: 05/26/22 S: feeling better, states Reglan is working better O: Brown spotting from vagina A: 9.6 weeks gestation P: Rhogam today [facility] home health consult done and emailed and faxed. F/U with OB provider after discharge
[2022-05-26 14:42] VITALS: BP 129/73
--- NOTE | 2022-05-26 14:44 | Discharge Summary ---
<JUS CAAL - Last Filed: 05/26/22 15:34> Providers - Providers Date of Admission: 05/24/22 21:59 Date of discharge: 05/26/22 Attending physician: SOCRATES LOPEZ MD 05/24/22 21:25 Consult to Physician [CONS] Urgent Comment: Consulting Provider: GWYN SUMMERS Physician Instructions: Reason For Exam: dka 05/24/22 21:59 Consult to Dietitian/Nutrition [CONS] Routine Physician Instructions: Reason For Exam: Reason for Consult: Diet education Consult to Physician [CONS] Routine Comment: Dr. Barrientos spoke with Dr. Geiger @ [phone] Consulting Provider: CATE GEIGER Physician Instructions: Reason For Exam: Threatened 05/24/22 22:21 Consult to Physician [CONS] Urgent Comment: spoke with her/ john Consulting Provider: AARON KAHN Physician Instructions: Reason For Exam: miscarriage 05/25/22 00:47 Consult to Dietitian/Nutrition [CONS] Routine Physician Instructions: Reason For Exam: Reason for Consult: Poor oral intake Primary care physician: FORENSIC EXAMINER Hospitalization Reason for admission: Diabetic Ketoacidosis(DKA), Type 1 Diabetes Mellitus Condition: Stable Hospital course: This is a 22-year-old female who is currently 9 weeks with known past medical history of type 1 diabetes mellitus admitted for DKA and vaginal spotting Hospital Course to Date: 05/25: Remains on DKA protocol. Still complaining of nausea but no vomiting. Anion gap still in the 20s this am, additional IVF bolus administered. Continue PRN antiemetic for N/V. No more vaginal spotting reported and patient denied any dysuria at this time. Worsening leukocytosis with low grade fever this am. Proably reactive from DKA, will culture and order procal for now. Hold off on IV abx for now. OBGYN consult pending, follow up call made to confirm consult. Sheet [facility] lMD to see patient this afternoon. CCM is also following. 05/26: BG improved and gap closed, transitioned to subQ insulin. Patient stable this am, c/o of nausea but no vomiting. DRUM STENCILER recommendations noted. Plan for RhoGham shot today and [facility] referral for outpatient Zofran pump. D/w DRUM STENCILER and CCM patient is stable for discharge. Plan discussed with the patient at the bedside. Encourage compliance with insulin regimen, consistent carbs diet, and to stay hydrated. Recommend outpatient follow up with her plastic die maker apprentice within 7 days and follow up with OB for further management of current . All questions and concerns were addressed at this time. Patient verbalized understanding and agreed with current care plan. Assessment and Plan #Diabetic Ketoacidosis(DKA) #Type 1 Diabetes Mellitus #Anion Gap Metabolic Acidosis - Presented with N/V and abdominal pain, with elevated BG, severe acidosis, and +ketone in urine - Patient is currently 9 week and reported persistent hyperemesis. She has been compliant with her medications. - S/p DKA protocol - Consistent carbs diet - Transition to subQ. Resume home regimen at discharge - Follow up with own plastic die maker apprentice within 7 days - Monitor and replace electrolytes as needed - CCM is also following - Patient stable for discharge #Nausea and Vomiting #Abdominal Pain- resolved - Most likely secondary to DKA. Patient is also 9 weeks with h/o hyperemesis from previous - s/p DKA protocol - PRN antiemetic for N/V - Per OB plan for [facility] referral for outpatient Zofran pump #Acute Kidney Injury(CALI) most likely Vasomotor Nephropathy #Hypernatremia #Hyperkalemia #Volume Depletion - 2/2 to dehydration - Renal function and electrolytes normalized post IVF hydration - Strict intake and output - Avoid nephrotoxic medications - Monitor and replace electrolytes as needed #Vaginal Spotting #C/f Threatened /Miscarriage - Patient is currently 9 week also c/o of vaginal spotting started on day of admit - ultrasound reveals that there is single living intrauterine with estimated sonographic age of 9 weeks and 4 days. - DRUM STENCILER consulted, appreciate recommendations - Plan for RhoGham shot today and [facility] referral for outpatient Zofran pump #Systemic Inflammatory Response Syndrome (SIRS) - Presented with tachycardia, Leukocytosis, and low grade fever - Probably reactive from DKA - UA noted, + blood and ketones. Otherwise unremarkable - Leukocytosis and tachycardia improved this am - Procal unremarkable and blood Culture with NGTD - No IV ABx warranted at this time - F/U with own primary care provider with 7 to 10 days #GI/DVT Prophylaxis - PPI- Pepcid - SCDs to bilateral lower extremities while in bed #Advance Care Planning - Disease education data, care plan, diagnoses, and prognosis were discussed with patient at the bedside. Patient is a FULL code. Patient acknowledged understanding and agreed with current care plan. Disposition: 01 HOME / SELF CARE / HOMELESS Final Discharge Diagnosis (Prints w/discharge instructions): Type 1 Diabetes Mellitus. S/p Diabetic Ketoacidosis(DKA). Vaginal Spotting Time spent for discharge: 35 Core Measure Documentation - Palliative Care Palliative Care/ Comfort Measures: Not Applicable - Core Measures Any of the following diagnoses?: none Exam - Constitutional Vitals: Temp Pulse Resp BP Pulse Ox 98.5 F 105 H 18 124/64 97 05/26/22 12:00 05/26/22 13:00 05/26/22 13:00 05/26/22 13:00 05/26/22 13:00 General appearance: Present: no acute distress, well-nourished - EENT Eyes: Present: PERRL, EOM intact ENT: hearing intact, clear oral mucosa - Neck Neck: Present: normal ROM - Respiratory Respiratory effort: normal Respiratory: bilateral: CTA - Cardiovascular Rhythm: regular Heart Sounds: Present: S1 & S2 - Extremities Extremities: no ischemia, pulses intact, pulses symmetrical Peripheral Pulses: within normal limits - Abdominal General gastrointestinal: Present: soft, non-distended, normal bowel sounds Female genitourinary: Present: deferred - Rectal Rectal Exam: deferred - Integumentary Integumentary: Present: clear, warm, dry - Musculoskeletal Musculoskeletal: strength equal bilaterally - Psychiatric Psychiatric: appropriate mood/affect, cooperative - Neurologic Neurologic: CNII-XII intact, moves all extremities - Allied Health Allied health notes reviewed: nursing, case management Plan Activity: advance as tolerated Diet: diabetic Wound: open to air Care Plan Goals: - Resume home insulin regimen as prescribed. Follow up with own plastic die maker apprentice within 7 days and primary care provider with 7 to 10 days - Follow health consistent carbohydrates diet. Stay hydrate. Per DRUM STENCILER - Rhogam administered today on 05/26/2022 - [facility] referral for Zofran pump. [facility] home health consult done, emailed and faxed. - F/U with OB provider after discharge Follow up with: PRIMARY CAREMD [Primary Care Provider] - 3-5 Days Prescriptions: Basaglar [place] U-100 30 units SQ HS 30 Days <SOCRATES LOPEZ - Last Filed: 05/27/22 07:14> Providers - Providers Date of Admission: 05/24/22 21:59 Attending physician: SOCRATES LOPEZ MD 05/24/22 21:25 Consult to Physician [CONS] Urgent Comment: Consulting Provider: GWYN SUMMERS Physician Instructions: Reason For Exam: dka 05/24/22 21:59 Consult to Dietitian/Nutrition [CONS] Routine Physician Instructions: Reason For Exam: Reason for Consult: Diet education Consult to Physician [CONS] Routine Comment: Dr. Barrientos spoke with Dr. Geiger @ [phone] Consulting Provider: CATE GEIGER Physician Instructions: Reason For Exam: Threatened 05/24/22 22:21 Consult to Physician [CONS] Urgent Comment: spoke with her/ john Consulting Provider: AARON KAHN Physician Instructions: Reason For Exam: miscarriage 05/25/22 00:47 Consult to Dietitian/Nutrition [CONS] Routine Physician Instructions: Reason For Exam: Reason for Consult: Poor oral intake Primary care physician: FORENSIC EXAMINER Hospitalization Hospital course: I saw and evaluated the patient. I agree with the findings and the plan of care as documented in the Nurse Practitioner's~note, with the following corrections and additions. Exam - Constitutional Vitals: Temp Pulse Resp BP Pulse Ox 98.5 F 106 H 26 H 129/73 98 05/26/22 12:00 05/26/22 14:00 05/26/22 15:01 05/26/22 15:01 05/26/22 15:01
== END 2022-05-26 15:45 | disposition home or self-care (01) | DRG 831 ==
LOC: ED 13:51 → CC1 21:59
PROVIDERS: ADMIT Internal Medicine Geriatric Medicine; ATTEND Internal Medicine
PROC: 3E0234Z Introduction of Serum, Toxoid and Vaccine into Muscle, Percutaneous Approach (ICD-10-PCS; principal; 2022-05-26)
DX: O20.0 Threatened abortion (principal); E10.10 Type 1 diabetes mellitus with ketoacidosis without coma; N17.0 Acute kidney failure with tubular necrosis; O24.011 Pre-existing type 1 diabetes mellitus, in pregnancy, first trimester; O26.831 Pregnancy related renal disease, first trimester; E87.0 Hyperosmolality and hypernatremia; R65.10 Systemic inflammatory response syndrome (SIRS) of non-infectious origin without acute organ dysfunction; E86.0 Dehydration; Z3A.09 9 weeks gestation of pregnancy; O99.281 Endocrine, nutritional and metabolic diseases complicating pregnancy, first trimester; E87.5 Hyperkalemia; E86.9 Volume depletion, unspecified; O26.891 Other specified pregnancy related conditions, first trimester; Z67.11 Type A blood, Rh negative
CPT/HCPCS: 36415; 76801; 80048; 80053; 81001; 82805; 82962; 83036; 83735; 84100; 84145; 84702; 85007; 85025; 85027; 85461; 86850; 86900; 86901; 87040; G0378; J3480; J3490; J7510; Q9967; J1815; J2060; J2405; J2765; J2790; J7030; J7040; J7120